=== PATIENT | male | born 1960 | race Caucasian/White ===

== ENCOUNTER → 2021-01-13 08:13 | Outpatient (CLI) | payer OTHER, SELFPAY ==
[2021-01-13 08:52] LABS: Add Manual Diff / Slide Review NO; Basophils Absolute Auto 100 /uL (0-100); Basophils Percent Auto 0.9 % (0-2); Eosinophils Absolute Auto 200 /uL (0-450); Eosinophils Percent Auto 2.3 % (2-4); Hematocrit 42.7 % (41-53); Hemoglobin 14.6 g/dL (13.5-17.5); Lymphocytes Absolute Auto 2000 /uL (1100-4500); Lymphocytes Percent Auto 27.2 % (25-40); Mean Corpuscular HGB Conc 34.2 % (30-36); Mean Corpuscular Hemoglobin 30.7 PG (26-34); Mean Corpuscular Volume 89.7 fL (80-100); Monocytes Absolute Auto 500 /uL (0-900); Monocytes Percent Auto 6.8 % (3-14); Neutrophils Absolute Auto 4600 /uL (1500-7000); Neutrophils Percent Auto 62.8 % (50-75); Platelet Count 191 X10^3/uL (150-400); Red Blood Cell Count 4.76 X10^6/uL (4.5-5.9); Red Cell Distribution Width 14.4 % (11.6-14.8); White Blood Cell Count 7.3 X10^3/uL (4.5-11.0)
[2021-01-13 08:59] LABS: Alanine Aminotransferase 18 IU/L (<50); Albumin 4.7 g/dL (3.5-5.0); Albumin Globulin Ratio 1.3 (1.0-2.8); Alkaline Phosphatase 67 U/L (38-126); Aspartate Aminotransferase 35 IU/L (17-59); BUN Creatinine Ratio 18.6 (6-22); Bilirubin Total 0.5 mg/dL (0.2-1.3); Blood Urea Nitrogen 16 mg/dL (9-20); Calcium 9.4 mg/dL (8.4-10.2); Carbon Dioxide 29 mmol/L (22-32); Chloride 105 mmol/L (98-107); Cholesterol 205 mg/dL (140-199); Estimated Glomerular Filt Rate > 60.0 mL/min (>60); Globulin 3.6 g/dL (1.7-4.1); Glucose 102 mg/dL (70-100); HDL Cholesterol 83 mg/dL (40-60); HEMOLYSIS < 15 (0-50); LDL Cholesterol Calculated 91 mg/dL (<100); Potassium 3.7 mmol/L (3.4-5.1); Sodium 143 mmol/L (137-145); Total Protein 8.3 g/dL (6.3-8.2); Triglycerides 155 mg/dL (35-150); Uric Acid 6.5 mg/dL (3.5-8.5)
[2021-01-13 09:27] LABS: Prostate Specific Antigen 0.234 ng/mL (0.10-4.00)
== END ==
PROVIDERS: PCP Family Medicine; Referring Provider Family Medicine; Visit Provider Family Medicine
DX: E78.5 Hyperlipidemia, unspecified (principal); I10 Essential (primary) hypertension; M10.9 Gout, unspecified
CPT/HCPCS: 36415; 80053; 80061; 84153; 84550; 85025

== ENCOUNTER → 2022-05-07 09:37 | Outpatient (CLI) | payer OTHER, SELFPAY ==
[2022-05-07 11:20] LABS: Add Manual Diff / Slide Review NO; Basophils Absolute Auto 100 /uL (0-100); Basophils Percent Auto 1.1 % (0-2); Eosinophils Absolute Auto 100 /uL (0-450); Hematocrit 43.6 % (41-53); Hemoglobin 14.9 g/dL (13.5-17.5); Lymphocytes Absolute Auto 1700 /uL (1100-4500); Lymphocytes Percent Auto 31.2 % (25-40); Mean Corpuscular HGB Conc 34.2 % (30-36); Mean Corpuscular Hemoglobin 30.6 PG (26-34); Mean Corpuscular Volume 89.5 fL (80-100); Monocytes Absolute Auto 500 /uL (0-900); Monocytes Percent Auto 8.2 % (3-14); Neutrophils Absolute Auto 3200 /uL (1500-7000); Neutrophils Percent Auto 57.5 % (50-75); Platelet Count 178 X10^3/uL (150-400); Red Blood Cell Count 4.88 X10^6/uL (4.5-5.9); Red Cell Distribution Width 13.5 % (11.6-14.8); White Blood Cell Count 5.6 X10^3/uL (4.5-11.0)
[2022-05-07 11:35] LABS: Alanine Aminotransferase 23 IU/L (<50); Albumin 4.6 g/dL (3.5-5.0); Albumin Globulin Ratio 1.4 (1.0-2.8); Alkaline Phosphatase 65 U/L (38-126); Aspartate Aminotransferase 35 IU/L (17-59); BUN Creatinine Ratio 17.8 (6-22); Bilirubin Total 0.9 mg/dL (0.2-1.3); Blood Urea Nitrogen 16 mg/dL (9-20); Calcium 9.3 mg/dL (8.4-10.2); Carbon Dioxide 30 mmol/L (22-32); Chloride 100 mmol/L (98-107); Cholesterol 230 mg/dL (140-199); Estimated Glomerular Filt Rate > 60 mL/min (>60); Globulin 3.4 g/dL (1.7-4.1); Glucose 93 mg/dL (80-110); HDL Cholesterol 75 mg/dL (40-60); HEMOLYSIS < 15 (0-50); LDL Cholesterol Calculated 131 mg/dL (<100); Potassium 4.3 mmol/L (3.4-5.1); Sodium 139 mmol/L (137-145); Triglycerides 121 mg/dL (35-150)
[2022-05-07 12:01] LABS: Prostate Specific Antigen 0.181 ng/mL (0.10-4.00)
== END ==
PROVIDERS: PCP Family Medicine; Referring Provider Family Medicine; Visit Provider Family Medicine
DX: E78.00 Pure hypercholesterolemia, unspecified (principal); I10 Essential (primary) hypertension
CPT/HCPCS: 36415; 80053; 80061; 84153; 85025

== ENCOUNTER → 2022-06-14 15:50 | Outpatient (CLI) | payer OTHER, SELFPAY ==
[2022-06-14 16:23] LABS: Appearance Urine UA CLEAR; Bilirubin Urine UA NEGATIVE (NEGATIVE); Color Urine UA YELLOW; Glucose Urine UA NEGATIVE (Negative); Ketones Urine UA NEGATIVE (NEGATIVE); Leukocyte Esterase Urine UA NEGATIVE (NEGATIVE); Nitrite Urine UA NEGATIVE (Negative); Occult Blood Urine UA NEGATIVE (Negative); Protein Urine UA NEGATIVE (Negative); pH Urine UA 6.5 (4.5-8.0)
[2022-06-14 16:39] LABS: Bacteria Urine None Seen; Culture Indicated Urine Cult Not Indicated; RBC Urine None Seen (0-5/HPF); Squamous Epithelial Cell Urine None Seen (0-5/HPF); WBC Urine None Seen (0-5/HPF)
== END ==
PROVIDERS: PCP Family Medicine; Referring Provider Family Medicine; Visit Provider Family Medicine
DX: N45.1 Epididymitis (principal)
CPT/HCPCS: 81001

== ENCOUNTER → 2022-08-13 09:40 | Day surgery (SDC) | payer OTHER, SELFPAY ==
--- NOTE | 2022-08-13 | PATH_ITS ---
[facility] Accession Number: [id number] No. of containers..01 Tissue . 01 Material submitted: . cecum - CECAL POLYP BIOPSY . 01 Diagnosis: Cecum, Polyp, Biopsy: Tubular adenoma. [facility] 08/17/2022 1707 Local . 01 Electronically signed: . Linda Moeller MD, Pathologist NPI- [id number] . 01 Gross description: . CECAL POLYP BIOPSY: Received in formalin is 1 fragment(s) of valentine, soft tissue measuring 0.4 x 0.3 x 0.2 cm submitted entirely in 1 cassette(s) /[facility] 08/16/2022 1151 Local . 01 Pathologist provided ICD-10: D12.0 . 01 CPT . 690817 Specimen Comment: A courtesy copy of this report has been sent to [facility] Pathology Performed at: 01 [facility] [address] [place] [address], [place], [place] [id number] MD Kervin Smiley MD Phone: [phone]
[2022-08-13 10:00] VITALS: BP 148/89; PULSE 61; RESP 18; TEMP 36.3; O2SAT 98; BMI 28.8
[2022-08-13] MEDS: LACTATED RINGERS 1,000 ML 42 ML IV (10:20)
--- NOTE | 2022-08-13 10:47 | PM.HP.1 ---
History of Present Illness History of Present Illness Date Patient Seen: 08/13/22 Time Patient Seen: 10:47 Chief complaint: [facility] [place] Narrative: Mr. Tran presents today for screening colonoscopy. He has no family history of colon cancer. He believes that his last colonoscopy was done 10 years ago it was on ?base? he thinks that he did have some polyps. He has no concerning symptoms and no further questions. The prep went well. [facility] Medical History (Updated 08/13/22 @ 10:48 by Jessica Bush MD) CVA (cerebral vascular accident) Epididymitis Gout Hyperlipidemia Hypertension Well adult on routine health check Surgical History (Updated 05/07/22 @ 09:21 by Imer Huerta DO) H/O hernia repair History of vasectomy Family History (Updated 05/07/22 @ 18:27 by Imer Huerta DO) Father Hypertension Congestive heart failure Brother Hypertension Social History household members: spouse Smoking Status: Never smoker second hand exposure: No alcohol intake: current substance use type: does not use Meds Home Medications and Allergies Home Medications Medication Instructions Recorded Confirmed Type colchicine 0.6 mg capsule 0.6 mg PO DAILY #20 caps 11/25/20 08/13/22 Rx donepezil 10 mg tablet 10 mg PO 05/07/22 06/14/22 History indomethacin 25 mg capsule 25 mg PO TID PRN diarrhea 05/07/22 08/13/22 History loratadine 10 mg tablet 10 mg PO DAILY PRN diarrhea 05/07/22 08/13/22 History doxycycline hyclate 100 mg capsule 100 mg PO BID #14 caps 06/14/22 08/13/22 Rx ibuprofen 800 mg tablet 800 mg PO TID PRN pain #30 tabs 06/14/22 08/13/22 Rx felodipine 10 mg tablet,extended 10 mg PO DAILY #90 tabs 06/18/22 08/13/22 Rx release 24 hr levothyroxine 100 mcg tablet 100 mcg PO DAILY #90 tabs 06/18/22 08/13/22 Rx (Synthroid) rosuvastatin 10 mg tablet 10 mg PO DAILY #90 tabs 06/18/22 Rx sodium,potassium,mag sulfates 17.5 See Rx Instructions PO .COMPLEX 08/10/22 Rx gram-3.13 gram-1.6 gram oral soln #354 mL (Suprep Bowel Prep Kit) Allergies Allergy/AdvReac Type Severity Reaction Status Date / Time No Known Drug Allergies Allergy Verified 08/13/22 09:55 Exam Vital Signs (past 8 hours): - 08/13/22 10:00 Temperature 97.4 F L Pulse Rate 61 Respiratory Rate 18 Blood Pressure 148/89 H Pulse Oximetry 98 Oxygen Delivery Method Room Air Oxygen Delivery Method Room Air Const General: cooperative, healthy appearing and comfortable HENMT Head: normal to inspection Eyes General: appearance normal, both eyes and all related structures Resp Effort & Inspection: normal respiratory effort and able to speak in complete sentences GI Palpation: soft and No tender Assessment & Plan Assessment and plan (1) Colon cancer screening: Status: Acute Assessment & Plan narrative: Presents today for screening colonoscopy I discussed the risks benefits and alternatives including but not limited to perforation of the colon and an incomplete exam he fully understands these risks and would like to proceed.
--- NOTE | 2022-08-13 11:43 | P.OP.COLON_ITS ---
Operative Date/Time/Diagnoses Date of procedure: 08/13/22 Time of procedure: 11:43 Pre-op diagnosis: Colon cancer screening history of polyps Procedure & Clinicians Study performed: Colonoscopy and biopsy Same procedure as scheduled: Yes Indications: Colon cancer screening, average risk Surgeon: Jessica Bush Procedure Notes Procedure in detail: Patient was taken to the endoscopy suite and placed in a left lateral decubitus position. Time-out was performed. Conscious sedation with the help of anesthesiologist was induced and maintained. A digital rectal exam was performed there were no masses or strictures. The colonoscope was introduced into the anal canal and advanced through to the cecum. Photograph of the appendiceal orifice was obtained. The prep was good [place] bowel prep score of 2. There was a small cecal polyp that was removed with the forceps. The scope was withdrawn slowly. There were some scattered diverticula throughout the sigmoid colon. The scope then retroflexed and the hemorrhoidal piles appeared normal. A photograph was obtained. Patient tolerated the procedure well and went in good condition to the postoperative care unit. Findings: divertiulosis and polyp(s) Specimen(s): other (1. Small cecal polyp.) Complications: none Post-procedure Plan for aftercare: Follow up in 7-10 years as long as there is no family history of colon cancer that develops and no concerning symptoms that develop in the interim.
[2022-08-13 11:47] VITALS: BP 108/67; PULSE 65; RESP 18; TEMP 36.6; O2SAT 94
[2022-08-13 11:52] VITALS: BP 109/71; PULSE 55; RESP 12; O2SAT 96
[2022-08-13 11:57] VITALS: BP 119/80; PULSE 68; RESP 16; O2SAT 97
[2022-08-13 12:03] VITALS: BP 130/80; PULSE 55; RESP 16; O2SAT 98
[2022-08-13 12:06] VITALS: BP 129/81; PULSE 54; RESP 16; TEMP 36.4; O2SAT 99
== END | disposition home or self-care (01) ==
PROVIDERS: PCP Family Medicine; Referring Provider Surgery; Visit Provider Surgery
PROC: 0DJD8ZZ Inspection of Lower Intestinal Tract, Via Natural or Artificial Opening Endoscopic (ICD-10-PCS; CPT 45378; principal; 2022-08-13 10:45)
DX: Z12.11 Encounter for screening for malignant neoplasm of colon (principal); Z86.010 Personal history of colon polyps; K57.30 Diverticulosis of large intestine without perforation or abscess without bleeding; D12.0 Benign neoplasm of cecum
CPT/HCPCS: 45380; J2704

== ENCOUNTER 2022-08-17 19:19 | Emergency (ER) | payer OTHER, SELFPAY ==
[2022-08-17] VITALS (13 sets, daily range): BP systolic 152–197; BP diastolic 76–86; PULSE 42–74; RESP 16; TEMP 36.4; O2SAT 95–98; BMI 28.8
[2022-08-17 20:49] LABS: Add Manual Diff / Slide Review NO; Basophils Absolute Auto 100 /uL (0-100); Basophils Percent Auto 1.3 % (0-2); Eosinophils Absolute Auto 200 /uL (0-450); Eosinophils Percent Auto 2.3 % (2-4); Hematocrit 39.6 % (41-53); Hemoglobin 13.7 g/dL (13.5-17.5); Lymphocytes Absolute Auto 2400 /uL (1100-4500); Lymphocytes Percent Auto 32.5 % (25-40); Mean Corpuscular HGB Conc 34.5 % (30-36); Mean Corpuscular Hemoglobin 30.9 PG (26-34); Mean Corpuscular Volume 89.5 fL (80-100); Monocytes Absolute Auto 600 /uL (0-900); Monocytes Percent Auto 8.6 % (3-14); Neutrophils Absolute Auto 4100 /uL (1500-7000); Neutrophils Percent Auto 55.3 % (50-75); Platelet Count 175 X10^3/uL (150-400); Red Blood Cell Count 4.42 X10^6/uL (4.5-5.9); Red Cell Distribution Width 13.6 % (11.6-14.8); White Blood Cell Count 7.4 X10^3/uL (4.5-11.0)
--- NOTE | 2022-08-17 20:49 | ED.GENADULT ---
HPI - General Adult General Chief complaint: Abdominal Pain Stated complaint: Swollen R rib cage; increasing pain Time Seen by Provider: 08/17/22 20:13 Source: patient Mode of arrival: Family Vehicle History of Present Illness HPI narrative: 62-year-old male who is here for evaluation of right upper quadrant abdominal pain he states that it did start earlier today approximately 1 hour after eating lunch. Has improved somewhat but is not completely gone. No vomiting. No diarrhea. No urinary symptoms. Has not tried anything for the symptoms prior to arrival. Did have a colonoscopy in the end of last week with polyp removals. Related Data Home Medications Medication Instructions Recorded Confirmed donepezil 10 mg tablet 10 mg PO 05/07/22 06/14/22 indomethacin 25 mg capsule 25 mg PO TID PRN diarrhea 05/07/22 08/13/22 loratadine 10 mg tablet 10 mg PO DAILY PRN diarrhea 05/07/22 08/13/22 Previous Rx's Medication Instructions Recorded colchicine 0.6 mg capsule 0.6 mg PO DAILY #20 caps 11/25/20 doxycycline hyclate 100 mg capsule 100 mg PO BID #14 caps 06/14/22 ibuprofen 800 mg tablet 800 mg PO TID PRN pain #30 tabs 06/14/22 felodipine 10 mg tablet,extended 10 mg PO DAILY #90 tabs 06/18/22 release 24 hr levothyroxine 100 mcg tablet 100 mcg PO DAILY #90 tabs 06/18/22 (Synthroid) rosuvastatin 10 mg tablet 10 mg PO DAILY #90 tabs 06/18/22 psyllium husk (with sugar) 3.4 1 tbsp PO BID #822 grams 08/13/22 gram/7 gram oral powder (Fiber (psyllium husk-sugar)) Allergies Allergy/AdvReac Type Severity Reaction Status Date / Time No Known Drug Allergies Allergy Verified 08/17/22 19:56 Review of Systems Review of Systems ROS Unobtainable: All systems reviewed & are unremarkable except as noted in HPI and below Patient History Medical History CVA (cerebral vascular accident) Epididymitis Gout Hyperlipidemia Hypertension Well adult on routine health check Surgical History (Updated 05/07/22 @ 09:21 by Imer Huerta DO) H/O hernia repair History of vasectomy Family History (Updated 05/07/22 @ 18:27 by Imer Huerta DO) Father Hypertension Congestive heart failure Brother Hypertension Social History household members: spouse Smoking Status: Never smoker second hand exposure: No alcohol intake: current substance use type: does not use Smoking Status: Never smoker alcohol intake frequency: 0-2 drinks per day Substance Use Type: does not use Exam Initial Vital Signs Initial Vital Signs: Vital Signs Temperature 97.6 F 08/17/22 19:50 Pulse Rate 48 L 08/17/22 19:50 Respiratory Rate 16 08/17/22 19:50 Blood Pressure 197/86 H 08/17/22 19:50 Pulse Oximetry 98 08/17/22 19:50 Oxygen Delivery Method Room Air 08/17/22 19:50 Resp Effort & Inspection: normal respiratory effort Auscultation: clear to auscultation bilaterally Cardio Rate: regular rate Rhythm: regular rhythm GI Inspection: normal to inspection and non-distended Palpation: soft, No firm and No tender Other: No Lanier's sign Back/Spine/Pelvis Back: No CVA tenderness Neuro General: patient alert, patient awake and moves all extremities Extrem General: normal to inspection and capillary refill normal Course Orders Ordered: ED Orders 08/17/22 19:58 EKG-12 Lead Stat 08/17/22 20:41 Complete Blood Count AUTO DIFF Stat Comprehensive Metabolic Panel Stat Lipase Stat 08/17/22 20:50 US abdomen limited Stat Discontinued Medications Ondansetron HCl (Ondansetron 4 Mg Odt) 4 mg PO NOW PRN PRN Reason: Nausea And Vomiting Ondansetron HCl (Ondansetron 4 Mg/2 Ml Inj) 4 mg IV NOW PRN PRN Reason: Nausea And Vomiting Vital Signs Vital signs: Vital Signs - 8 hr 08/17/22 19:50 08/17/22 20:42 08/17/22 20:43 Temperature 97.6 F Pulse Rate 48 L 50 L 42 L Respiratory Rate 16 Blood Pressure 197/86 H Pulse Oximetry 98 97 98 Oxygen Delivery Method Room Air 08/17/22 20:43 08/17/22 21:00 08/17/22 21:01 Temperature Pulse Rate 44 L 44 L Respiratory Rate Blood Pressure 185/84 H Pulse Oximetry 97 97 Oxygen Delivery Method 08/17/22 21:01 08/17/22 21:30 08/17/22 21:31 Temperature Pulse Rate 50 L 45 L Respiratory Rate Blood Pressure 179/84 H Pulse Oximetry 98 97 Oxygen Delivery Method 08/17/22 21:31 08/17/22 22:00 08/17/22 22:00 Temperature Pulse Rate 47 L Respiratory Rate Blood Pressure 152/76 H 167/83 H Pulse Oximetry 97 Oxygen Delivery Method Room Air 08/17/22 22:30 08/17/22 22:31 08/17/22 22:31 Temperature Pulse Rate 46 L 44 L Respiratory Rate Blood Pressure 170/80 H Pulse Oximetry 96 96 Oxygen Delivery Method 08/17/22 23:00 08/17/22 23:01 08/17/22 23:01 Temperature Pulse Rate 46 L 46 L Respiratory Rate Blood Pressure 155/83 H Pulse Oximetry 95 96 Oxygen Delivery Method Room Air Room Air 08/17/22 23:26 Temperature 97.6 F Pulse Rate 74 Respiratory Rate 16 Blood Pressure 155/84 H Pulse Oximetry 98 Oxygen Delivery Method Room Air Medical Decision Making Lab Data Lab results reviewed: Yes I reviewed the patient's lab results. 08/17/22 20:41 08/17/22 20:41 Labs: Lab Results 08/17/22 08/17/22 Range/Units 20:41 20:41 WBC 7.4 (4.5-11.0) X10^3/uL RBC 4.42 L (4.5-5.9) X10^6/uL Hgb 13.7 (13.5-17.5) g/dL Hct 39.6 L (41-53) % MCV 89.5 (80-100) fL MCH 30.9 (26-34) PG MCHC 34.5 (30-36) % RDW 13.6 (11.6-14.8) % Plt Count 175 (150-400) X10^3/uL Neut % (Auto) 55.3 (50-75) % Lymph % (Auto) 32.5 (25-40) % [place] % (Auto) 8.6 (3-14) % Eos % (Auto) 2.3 (2-4) % Baso % (Auto) 1.3 (0-2) % Neut # (Auto) 4100 (4774-6145) /uL Lymph # (Auto) 2400 (6765-7644) /uL [place] # (Auto) 600 (0-900) /uL Eos # (Auto) 200 (0-450) /uL Baso # (Auto) 100 (0-100) /uL Sodium 141 (137-145) mmol/L Potassium 3.3 L (3.4-5.1) mmol/L Chloride 105 (98-107) mmol/L Carbon Dioxide 28 (22-32) mmol/L BUN 14 (9-20) mg/dL Creatinine 0.96 (0.66-1.25) mg/dL Estimated GFR > 60 (>60) mL/min BUN/Creatinine Ratio 14.6 (6-22) Glucose 93 (80-110) mg/dL Calcium 9.0 (8.4-10.2) mg/dL Total Bilirubin 0.7 (0.2-1.3) mg/dL AST 28 (17-59) IU/L ALT 20 (<50) IU/L Alkaline Phosphatase 58 (38-126) U/L Total Protein 7.4 (6.3-8.2) g/dL Albumin 4.3 (3.5-5.0) g/dL Globulin 3.1 (1.7-4.1) g/dL Albumin/Globulin Ratio 1.4 (1.0-2.8) Lipase 59 (23-300) U/L Imaging Data US - abdomen: Radiologist's Impression: PROCEDURE: US ABDOMEN LIMITED ? INDICATIONS:? RUQ PAIN ? TECHNIQUE:? Real-time focused scanning was performed of the abdomen, with image documentation.? ? COMPARISON:? None. ? FINDINGS:? ? The liver demonstrates increased no focal mass lesions.? ? There are 2-3 mobile gallstones without gallbladder wall thickening, pericholecystic fluid, or reported sonographic Lanier's sign. ? No intra or extrahepatic biliary ductal dilatation. ? Pancreas was not well seen due to bowel gas. ? ? IMPRESSION:? ? 1. Cholelithiasis without evidence of cholecystitis. MDM Narrative Medical decision making narrative: Patient has a benign exam. Right upper quadrant ultrasound does show cholelithiasis without acute cholecystitis. His labs are unremarkable. I do feel this is most likely the cause of his symptoms today however no indication for admission to the hospital or acute surgical consultation. I did discuss this with him. Discussed the importance of follow-up with general surgery and he was given information for this. We discussed potential dietary changes. He was given return precautions. He expressed understanding and agreement. Discharge Plan Departure Patient Disposition: Home Clinical Impression: Cholelithiasis Instructions: DI for Gallstones Activity Restrictions/Additional Instructions: Recommend that you continue to take all of your medications as directed. I also recommend that you contact the general surgery department at the number provided below for a routine follow-up as an outpatient. Return to the emergency department for new or worsening symptoms. Prescriptions: No Action rosuvastatin 10 mg tablet 10 mg PO DAILY Qty: 90 3RF levothyroxine [Synthroid] 100 mcg tablet 100 mcg PO DAILY Qty: 90 3RF felodipine 10 mg tablet extended release 24 hr 10 mg PO DAILY Qty: 90 3RF donepezil 10 mg tablet 10 mg PO doxycycline hyclate 100 mg capsule 100 mg PO BID Qty: 14 0RF ibuprofen 800 mg tablet 800 mg PO TID PRN (Reason: pain) Qty: 30 0RF colchicine 0.6 mg capsule 0.6 mg PO DAILY Qty: 20 1RF Rx Instructions: One p.o. Q hour max 6 in 1 day as needed gout attack loratadine 10 mg tablet 10 mg PO DAILY PRN (Reason: diarrhea) indomethacin 25 mg capsule 25 mg PO TID PRN (Reason: diarrhea) Fiber (psyllium husk-sugar) 3.4 gram/7 gram powder 1 tbsp PO BID Qty: 822 0RF Referrals: Jessica Bush MD [Physician] - Imer Huerta DO [Primary Care Provider] - Stand Alone Forms: Patient Portal/API
--- NOTE | 2022-08-17 20:50 | DI.US.S_ITS ---
PROCEDURE: US ABDOMEN LIMITED INDICATIONS: RUQ PAIN TECHNIQUE: Real-time focused scanning was performed of the abdomen, with image documentation. COMPARISON: None. FINDINGS: The liver demonstrates increased no focal mass lesions. There are 2-3 mobile gallstones without gallbladder wall thickening, pericholecystic fluid, or reported sonographic Lanier's sign. No intra or extrahepatic biliary ductal dilatation. Pancreas was not well seen due to bowel gas. IMPRESSION: 1. Cholelithiasis without evidence of cholecystitis. Dictated by: Kervin Marie M.D. on 08/17/2022 at 22:59 Approved by: Kervin Marie M.D. on 08/17/2022 at 23:00
[2022-08-17 21:14] LABS: Alanine Aminotransferase 20 IU/L (<50); Albumin 4.3 g/dL (3.5-5.0); Albumin Globulin Ratio 1.4 (1.0-2.8); Alkaline Phosphatase 58 U/L (38-126); Aspartate Aminotransferase 28 IU/L (17-59); BUN Creatinine Ratio 14.6 (6-22); Bilirubin Total 0.7 mg/dL (0.2-1.3); Blood Urea Nitrogen 14 mg/dL (9-20); Carbon Dioxide 28 mmol/L (22-32); Chloride 105 mmol/L (98-107); Estimated Glomerular Filt Rate > 60 mL/min (>60); Globulin 3.1 g/dL (1.7-4.1); Glucose 93 mg/dL (80-110); HEMOLYSIS < 15 (0-50); Lipase 59 U/L (23-300); Potassium 3.3 mmol/L (3.4-5.1); Sodium 141 mmol/L (137-145); Total Protein 7.4 g/dL (6.3-8.2)
== END 2022-08-17 23:28 | disposition home or self-care (01) ==
PROVIDERS: Emergency Provider Emergency Medicine; PCP Family Medicine
DX: K80.20 Calculus of gallbladder without cholecystitis without obstruction (principal); R10.11 Right upper quadrant pain
CPT/HCPCS: 36415; 76705; 80053; 83690; 85025; 93005; 93010; 99283; 99284

== ENCOUNTER 2022-08-20 06:36 | Inpatient (IN) | payer OTHER, SELFPAY ==
[2022-08-20] VITALS (22 sets, daily range): BP systolic 131–157; BP diastolic 70–91; PULSE 42–81; RESP 11–20; TEMP 36.1–36.7; O2SAT 86–100; BMI 28.5
--- NOTE | 2022-08-20 | PATH_ITS ---
[facility] Accession Number: [id number] No. of containers..01 Tissue . 01 Material submitted: . gallbladder - GALLBALDDER . 01 Diagnosis: Gallbladder, Cholecystectomy: Chronic cholecystitis and cholelithiasis. [facility] 08/30/2022 1247 Local . 01 Electronically signed: . Gloria Washington MD, Pathologist NPI- [id number] . 01 Gross description: . The specimen is received in formalin labeled with the patient's name, , and gallbladder, and consists of an intact gallbladder measuring 6.3 x 2.6 x 2.2 cm. The external surface is unremarkable. The cystic duct is received closed with a clamp, is inked blue, and no pericystic lymph node is identified. The lumen contains a small amount of green viscous bile and multiple green, roughened calculi measuring up to 0.6 cm in greatest dimension, grossly obstructing the cystic duct. A firm, nodule is located in the fundus. The serosa is inked black. Sectioning reveals a calculus embedded into the gallbladder wall. The mucosa is valentine and trabecular with no discoloration, polyps, or lesions identified. The samson average 0.3 cm thick. Continuity Coordinator sections to include the cystic duct margin and full-thickness sections are submitted in cassette A1. ([id number]) /[facility] 08/25/2022 0335 Local . 01 Pathologist provided ICD-10: K80.10 . 01 CPT . 157768 Specimen Comment: A courtesy copy of this report has been sent to [phone] Performed at: 01 [facility] [address] [place] [address] [address], [place], [place] [id number] MD Kervin Smiley MD Phone: [phone]
--- NOTE | 2022-08-20 06:44 | ED.GENADULT ---
HPI - General Adult <Florentino Aguirre DO - Last Filed: 08/20/22 18:03> General Chief complaint: Nausea/Vomiting/Diarrhea Stated complaint: throwing up, gall stones Time Seen by Provider: 08/20/22 06:38 Source: patient Mode of arrival: Ambulatory Limitations: no limitations History of Present Illness HPI narrative: Patient is a 62-year-old male who I evaluated here in the emergency department a couple days ago for right upper quadrant abdominal pain. Was diagnosed with cholelithiasis without signs of acute cholecystitis. Was discharged home. He had follow-up today with General surgery however overnight at approximately 0330 in the morning at a sudden onset of right upper quadrant abdominal pain. No fevers. No diarrhea. No urinary symptoms. Has not tried anything for symptoms prior to arrival. He has been vomiting multiple times. Related Data Home Medications Medication Instructions Recorded Confirmed indomethacin 25 mg capsule 25 mg PO TID PRN diarrhea 05/07/22 08/20/22 loratadine 10 mg tablet 10 mg PO DAILY PRN diarrhea 05/07/22 08/20/22 Previous Rx's Medication Instructions Recorded ibuprofen 800 mg tablet 800 mg PO TID PRN pain #30 tabs 06/14/22 felodipine 10 mg tablet,extended 10 mg PO DAILY #90 tabs 06/18/22 release 24 hr levothyroxine 100 mcg tablet 100 mcg PO DAILY #90 tabs 06/18/22 (Synthroid) rosuvastatin 10 mg tablet 10 mg PO DAILY #90 tabs 06/18/22 Allergies Allergy/AdvReac Type Severity Reaction Status Date / Time No Known Drug Allergies Allergy Verified 08/17/22 19:56 Review of Systems <DO Dexter Triplett Last Filed: 08/20/22 18:03> Constitutional Constitutional: Reports system reviewed and no additional complaints, except as documented Gastrointestinal Gastrointestinal: Reports system reviewed and no additional complaints, except as documented Genitourinary Genitourinary: Reports system reviewed and no additional complaints, except as documented Integumentary/Breasts Skin/Breast: Reports system reviewed and no additional complaints, except as documented Patient History <Florentino Aguirre DO - Last Filed: 08/20/22 18:03> Medical History CVA (cerebral vascular accident) Epididymitis Gout Hyperlipidemia Hypertension Well adult on routine health check Surgical History H/O hernia repair History of vasectomy Family History Father Hypertension Congestive heart failure Brother Hypertension Social History household members: spouse Smoking Status: Never smoker second hand exposure: No alcohol intake: current substance use type: does not use Smoking Status: Never smoker alcohol intake frequency: 0-2 drinks per day Substance Use Type: does not use Exam <Florentino Aguirre DO - Last Filed: 08/20/22 18:03> Initial Vital Signs Initial Vital Signs: Vital Signs Pulse Rate 59 L 08/20/22 06:43 Pulse Oximetry 100 08/20/22 06:43 Const General: cooperative and No ill appearing Resp Effort & Inspection: normal respiratory effort Auscultation: clear to auscultation bilaterally Cardio Rate: regular rate Rhythm: regular rhythm GI Inspection: normal to inspection and non-distended Palpation: soft and tender (Right upper quadrant tenderness) Other: Positive Lanier's sign Skin General: no rashes or lesions noted Neuro General: patient alert, patient awake and moves all extremities Extrem General: normal to inspection and capillary refill normal <Brooks Neil DO - Last Filed: 08/20/22 08:33> Initial Vital Signs Initial Vital Signs: Vital Signs Pulse Rate 59 L 08/20/22 06:43 Pulse Oximetry 100 08/20/22 06:43 Course <DO Dexter Triplett Last Filed: 08/20/22 18:03> Orders Ordered: Bupivacaine HCl (Bupivacaine 0.25% (Pf) Vial) 30 ml INJ NOW ONE Stop: 08/20/22 17:59 Last Admin: 08/20/22 17:58 Dose: 30 ml Documented By: NORMA Sodium Chloride (Normal Saline 0.9%) 1,000 mls @ 125 mls/hr IV CONT HILL Last Infusion: 08/20/22 08:59 Dose: 0 mls/hr Documented By: NORMA(2) Admin: 08/20/22 07:12 Dose: 125 mls/hr Documented By: GEOVANNI Lactated Ringer's (Lactated Ringers) 1,000 mls @ 42 mls/hr IV CONT HILL Last Admin: 08/20/22 17:04 Dose: 42 mls/hr Documented By: WALTER Cefazolin Sodium/Dextrose (Ancef) 100 mls @ 200 mls/hr IV NOW ONE Stop: 08/20/22 18:27 Last Admin: 08/20/22 17:35 Dose: 200 mls/hr Documented By: AB Discontinued Medications Hydromorphone HCl (Hydromorphone 1 Mg Inj) 1 mg IV NOW ONE Stop: 08/20/22 06:45 Last Admin: 08/20/22 07:10 Dose: 1 mg Documented By: GEOVANNI Ondansetron HCl (Ondansetron 4 Mg/2 Ml Inj) 4 mg IV NOW ONE Stop: 08/20/22 06:45 Last Admin: 08/20/22 07:09 Dose: 4 mg Documented By: GEOVANNI Vital Signs Vital signs: Vital Signs - 8 hr 08/20/22 06:58 Temperature 97.8 F Pulse Rate 64 Respiratory Rate 18 Blood Pressure 157/86 H Pulse Oximetry 100 Oxygen Delivery Method Room Air <Brooks Neil DO - Last Filed: 08/20/22 08:33> Orders Ordered: Bupivacaine HCl (Bupivacaine 0.25% (Pf) Vial) 30 ml INJ NOW ONE Stop: 08/20/22 17:59 Last Admin: 08/20/22 17:58 Dose: 30 ml Documented By: NORMA Sodium Chloride (Normal Saline 0.9%) 1,000 mls @ 125 mls/hr IV CONT HILL Last Infusion: 08/20/22 08:59 Dose: 0 mls/hr Documented By: NORMA(2) Admin: 08/20/22 07:12 Dose: 125 mls/hr Documented By: GEOVANNI Lactated Ringer's (Lactated Ringers) 1,000 mls @ 42 mls/hr IV CONT HILL Last Admin: 08/20/22 17:04 Dose: 42 mls/hr Documented By: WALTER Cefazolin Sodium/Dextrose (Ancef) 100 mls @ 200 mls/hr IV NOW ONE Stop: 08/20/22 18:27 Last Admin: 08/20/22 17:35 Dose: 200 mls/hr Documented By: AB Discontinued Medications Hydromorphone HCl (Hydromorphone 1 Mg Inj) 1 mg IV NOW ONE Stop: 08/20/22 06:45 Last Admin: 08/20/22 07:10 Dose: 1 mg Documented By: GEOVANNI Ondansetron HCl (Ondansetron 4 Mg/2 Ml Inj) 4 mg IV NOW ONE Stop: 08/20/22 06:45 Last Admin: 08/20/22 07:09 Dose: 4 mg Documented By: GEOVANNI Vital Signs Vital signs: Vital Signs - 8 hr 08/20/22 06:58 Temperature 97.8 F Pulse Rate 64 Respiratory Rate 18 Blood Pressure 157/86 H Pulse Oximetry 100 Oxygen Delivery Method Room Air Medical Decision Making <Florentino Aguirre DO - Last Filed: 08/20/22 18:03> Lab Data 08/20/22 07:00 08/20/22 07:00 Labs: Lab Results 08/20/22 08/20/22 08/20/22 Range/Units 07:00 07:00 07:00 WBC 13.1 H (4.5-11.0) X10^3/uL RBC 5.11 (4.5-5.9) X10^6/uL Hgb 15.6 (13.5-17.5) g/dL Hct 44.9 (41-53) % MCV 87.9 (80-100) fL MCH 30.5 (26-34) PG MCHC 34.7 (30-36) % RDW 13.7 (11.6-14.8) % Plt Count 190 (150-400) X10^3/uL Neut % (Auto) 82.5 H (50-75) % Lymph % (Auto) 12.3 L (25-40) % [place] % (Auto) 4.2 (3-14) % Eos % (Auto) 0.5 L (2-4) % Baso % (Auto) 0.5 (0-2) % Neut # (Auto) 01727 H (4047-2831) /uL Lymph # (Auto) 1600 (0653-6539) /uL [place] # (Auto) 500 (0-900) /uL Eos # (Auto) 100 (0-450) /uL Baso # (Auto) 100 (0-100) /uL Sodium 140 (137-145) mmol/L Potassium 3.2 L (3.4-5.1) mmol/L Chloride 101 (98-107) mmol/L Carbon Dioxide 27 (22-32) mmol/L BUN 14 (9-20) mg/dL Creatinine 1.00 (0.66-1.25) mg/dL Estimated GFR > 60 (>60) mL/min BUN/Creatinine Ratio 14.0 (6-22) Glucose 155 H (80-110) mg/dL Calcium 9.4 (8.4-10.2) mg/dL Total Bilirubin 0.7 (0.2-1.3) mg/dL AST 34 (17-59) IU/L ALT 27 (<50) IU/L Alkaline Phosphatase 83 (38-126) U/L Total Protein 8.9 H (6.3-8.2) g/dL Albumin 5.1 H (3.5-5.0) g/dL Globulin 3.8 (1.7-4.1) g/dL Albumin/Globulin Ratio 1.3 (1.0-2.8) Lipase 64 (23-300) U/L SARS-CoV-2 (PCR) Negative (Negative) MDM Narrative Medical decision making narrative: Patient has known cholelithiasis in his presentation today is very consistent with symptomatic cholelithiasis/acute cholecystitis. Is a positive sonographic Lanier's sign. Did discuss case with Dr. Morales who recommended we do get labs back however there is a consideration for taking him to the operating room. Care turned over to Dr. Quiñones to follow-up on labs and disposition. <Brooks Neil DO - Last Filed: 08/20/22 08:33> Lab Data Labs: Lab Results 08/20/22 08/20/22 08/20/22 Range/Units 07:00 07:00 07:00 WBC 13.1 H (4.5-11.0) X10^3/uL RBC 5.11 (4.5-5.9) X10^6/uL Hgb 15.6 (13.5-17.5) g/dL Hct 44.9 (41-53) % MCV 87.9 (80-100) fL MCH 30.5 (26-34) PG MCHC 34.7 (30-36) % RDW 13.7 (11.6-14.8) % Plt Count 190 (150-400) X10^3/uL Neut % (Auto) 82.5 H (50-75) % Lymph % (Auto) 12.3 L (25-40) % [place] % (Auto) 4.2 (3-14) % Eos % (Auto) 0.5 L (2-4) % Baso % (Auto) 0.5 (0-2) % Neut # (Auto) 83788 H (2814-1506) /uL Lymph # (Auto) 1600 (2691-0436) /uL [place] # (Auto) 500 (0-900) /uL Eos # (Auto) 100 (0-450) /uL Baso # (Auto) 100 (0-100) /uL Sodium 140 (137-145) mmol/L Potassium 3.2 L (3.4-5.1) mmol/L Chloride 101 (98-107) mmol/L Carbon Dioxide 27 (22-32) mmol/L BUN 14 (9-20) mg/dL Creatinine 1.00 (0.66-1.25) mg/dL Estimated GFR > 60 (>60) mL/min BUN/Creatinine Ratio 14.0 (6-22) Glucose 155 H (80-110) mg/dL Calcium 9.4 (8.4-10.2) mg/dL Total Bilirubin 0.7 (0.2-1.3) mg/dL AST 34 (17-59) IU/L ALT 27 (<50) IU/L Alkaline Phosphatase 83 (38-126) U/L Total Protein 8.9 H (6.3-8.2) g/dL Albumin 5.1 H (3.5-5.0) g/dL Globulin 3.8 (1.7-4.1) g/dL Albumin/Globulin Ratio 1.3 (1.0-2.8) Lipase 64 (23-300) U/L SARS-CoV-2 (PCR) Negative (Negative) MDM Narrative Medical decision making narrative: Patient has known cholelithiasis in his presentation today is very consistent with symptomatic cholelithiasis/acute cholecystitis. Is a positive sonographic Lanier's sign. Did discuss case with Dr. Morales who recommended we do get labs back however there is a consideration for taking him to the operating room. Care turned over to Dr. Neil to follow-up on labs and disposition [0700] (Rashaad) Patient received in sign out from [Timothy]. I have reviewed the clinical course and performed an independent history and physical exam. 0810 -labs have returned patient has white count and left shift. His pain is controlled currently but he is requiring 2 L by nasal cannula after administration of the meds. I have placed a call to Dr. Morales and after discussing the clinical course he requests the patient be admitted onto his service and will likely receive surgical intervention later today. Both the patient and his understand and agree with the diagnosis and plan. Discharge Plan Departure Patient Disposition: Admitted as Observation Clinical Impression: Disease of gallbladder Admit Date/Time: 08/20/22 08:24 Admit Provider: Christofer Morales
[2022-08-20] MEDS: ONDANSETRON 4 MG/2 ML INJ IV ×2 (07:09→19:13)
[2022-08-20] MEDS: HYDROMORPHONE 1 MG INJ IV (07:10)
[2022-08-20] MEDS: SODIUM CHLORIDE 0.9% 1,000 ML 125 ML IV (07:12)
[2022-08-20 07:32] LABS: COVID19 -Nasal RAPID Negative (Negative)
[2022-08-20 07:35] LABS: Alanine Aminotransferase 27 IU/L (<50); Albumin 5.1 g/dL (3.5-5.0); Albumin Globulin Ratio 1.3 (1.0-2.8); Alkaline Phosphatase 83 U/L (38-126); Aspartate Aminotransferase 34 IU/L (17-59); Bilirubin Total 0.7 mg/dL (0.2-1.3); Blood Urea Nitrogen 14 mg/dL (9-20); Calcium 9.4 mg/dL (8.4-10.2); Carbon Dioxide 27 mmol/L (22-32); Chloride 101 mmol/L (98-107); Estimated Glomerular Filt Rate > 60 mL/min (>60); Globulin 3.8 g/dL (1.7-4.1); Glucose 155 mg/dL (80-110); HEMOLYSIS 21 (0-50); Lipase 64 U/L (23-300); Potassium 3.2 mmol/L (3.4-5.1); Sodium 140 mmol/L (137-145); Total Protein 8.9 g/dL (6.3-8.2)
[2022-08-20 07:56] LABS: Add Manual Diff / Slide Review NO; Basophils Absolute Auto 100 /uL (0-100); Basophils Percent Auto 0.5 % (0-2); Eosinophils Absolute Auto 100 /uL (0-450); Eosinophils Percent Auto 0.5 % (2-4); Hematocrit 44.9 % (41-53); Hemoglobin 15.6 g/dL (13.5-17.5); Lymphocytes Absolute Auto 1600 /uL (1100-4500); Lymphocytes Percent Auto 12.3 % (25-40); Mean Corpuscular HGB Conc 34.7 % (30-36); Mean Corpuscular Hemoglobin 30.5 PG (26-34); Mean Corpuscular Volume 87.9 fL (80-100); Monocytes Absolute Auto 500 /uL (0-900); Monocytes Percent Auto 4.2 % (3-14); Neutrophils Absolute Auto 10800 /uL (1500-7000); Neutrophils Percent Auto 82.5 % (50-75); Platelet Count 190 X10^3/uL (150-400); Red Blood Cell Count 5.11 X10^6/uL (4.5-5.9); Red Cell Distribution Width 13.7 % (11.6-14.8); White Blood Cell Count 13.1 X10^3/uL (4.5-11.0)
--- NOTE | 2022-08-20 13:31 | PC.NURSE ---
Patient arrived to room 203 from ED this a.m. at approximately 1020 A&OX4. VSS, afebrile on RA. He reports abdominal pain is controlled and denies nausea/vomitting. IVF NS at 125 ml/hr. He is currently NPO while awaiting procedure this afternoon for cholecystecomy
[2022-08-20] MEDS: LACTATED RINGERS 1,000 ML 42 ML IV ×3 (17:04→19:36)
--- NOTE | 2022-08-20 17:08 | PM.HP.1 ---
History of Present Illness History of Present Illness Date Patient Seen: 08/20/22 Time Patient Seen: 17:08 Chief complaint: throwing up, gall stones Narrative: 62-year-old male admitted to the hospital with acute cholecystitis. He presented to the emergency department last night with complaint severe abdominal pain associated with nausea vomiting. He was seen in the emergency department several days ago, underwent abdominal ultrasound which demonstrated multiple gallstones no evidence of acute cholecystitis at that time, laboratory studies were normal including LFTs and he was discharged with plan to follow up in surgical clinic. Today on presentation white blood cell count is 13.1 imaging was not repeated as it had been done several days prior but he was exquisitely tender in the right upper quadrant at admission. [facility] Medical History CVA (cerebral vascular accident) Epididymitis Gout Hyperlipidemia Hypertension Well adult on routine health check Surgical History H/O hernia repair History of vasectomy Family History Father Hypertension Congestive heart failure Brother Hypertension Social History household members: spouse Smoking Status: Never smoker second hand exposure: No alcohol intake: current substance use type: does not use Meds Home Medications and Allergies Home Medications Medication Instructions Recorded Confirmed Type indomethacin 25 mg capsule 25 mg PO TID PRN diarrhea 05/07/22 08/20/22 History loratadine 10 mg tablet 10 mg PO DAILY PRN diarrhea 05/07/22 08/20/22 History ibuprofen 800 mg tablet 800 mg PO TID PRN pain #30 tabs 06/14/22 08/20/22 Rx felodipine 10 mg tablet,extended 10 mg PO DAILY #90 tabs 06/18/22 08/20/22 Rx release 24 hr levothyroxine 100 mcg tablet 100 mcg PO DAILY #90 tabs 06/18/22 08/20/22 Rx (Synthroid) rosuvastatin 10 mg tablet 10 mg PO DAILY #90 tabs 06/18/22 08/20/22 Rx Allergies Allergy/AdvReac Type Severity Reaction Status Date / Time No Known Drug Allergies Allergy Verified 08/17/22 19:56 Exam Vital Signs (past 8 hours): - 08/20/22 09:10 08/20/22 15:46 08/20/22 16:59 Temperature 96.9 F L 97.9 F 98.1 F Pulse Rate 64 54 L 62 Respiratory Rate 16 16 20 Blood Pressure 146/84 H 135/86 136/88 Pulse Oximetry 100 98 98 Oxygen Delivery Method Room Air Oxygen Delivery Method Room Air Narrative Exam Narrative: General adult man alert oriented no acute distress Chest nonlabored respiration Abdomen tender right upper quadrant no jose peritonitis. Objective Labs 08/20/22 07:00 08/20/22 07:00 Labs: Laboratory Results - last 24 hr 08/20/22 08/20/22 08/20/22 07:00 07:00 07:00 WBC 13.1 H RBC 5.11 Hgb 15.6 Hct 44.9 MCV 87.9 MCH 30.5 MCHC 34.7 RDW 13.7 Plt Count 190 Neut % (Auto) 82.5 H Lymph % (Auto) 12.3 L [place] % (Auto) 4.2 Eos % (Auto) 0.5 L Baso % (Auto) 0.5 Neut # (Auto) 98203 H Lymph # (Auto) 1600 [place] # (Auto) 500 Eos # (Auto) 100 Baso # (Auto) 100 Sodium 140 Potassium 3.2 L Chloride 101 Carbon Dioxide 27 BUN 14 Creatinine 1.00 Estimated GFR > 60 BUN/Creatinine Ratio 14.0 Glucose 155 H Calcium 9.4 Total Bilirubin 0.7 AST 34 ALT 27 Alkaline Phosphatase 83 Total Protein 8.9 H Albumin 5.1 H Globulin 3.8 Albumin/Globulin Ratio 1.3 Lipase 64 SARS-CoV-2 (PCR) Negative Assessment & Plan Assessment and plan (1) Acute cholecystitis: Status: Acute Assessment & Plan narrative: 62-year-old man with acute cholecystitis. I reviewed his imaging from few days ago an abdominal ultrasound which demonstrates multiple gallstones at the time he did not have signs of acute cholecystitis. Today he has leukocytosis and a positive Lanier's sign LFTs are normal. I explained to the patient that he likely has acute cholecystitis and given that his recurrent episodes of biliary colic my recommendation is to proceed with laparoscopic cholecystectomy. Overview of the operation was discussed. Operative risks including but not limited to hemorrhage, infection damage to surrounding structures, conversion to open, embolism, stroke, heart attack were discussed. Questions have been answered he is in agreement with this plan. He provides his written and verbal consent to proceed.
--- NOTE | 2022-08-20 17:23 | SUR.HOLD ---
Irregular heartbeat noted when auscultating heart sounds. Three-lead EkG strip printed. Notified ZAHRAA Mckeon; Twelve-lead EKG ordered and completed at bedside. Afibrillation noted. Asymptomatic. Dr Morales aware.
[2022-08-20] MEDS: CEFAZOLIN 2 GM/100 ML PREMIX 100 ML IV (17:35)
--- NOTE | 2022-08-20 17:35 | PC.NURSE ---
Day shift: Took over RN care of patient at 1500. PACU nurse came to transport down to OR at 1630. gave me a copy of patient's advanced directives, which I put in the chart.
--- NOTE | 2022-08-20 17:49 | SUR.OPER ---
Supine on padded OR bed, head on pillow, arms padded and tucked at sides, legs uncrossed, safety belt at thigh, tape over blanket over lower legs .
[2022-08-20] MEDS: BUPIVACAINE 0.25% (PF) VIAL 30 ML INJ (17:58)
--- NOTE | 2022-08-20 19:10 | P.OP_ITS ---
Operative Date/Time/Diagnoses Date of procedure: 08/20/22 Time of procedure: 19:10 Pre-op diagnosis: Acute cholecystitis Post-op diagnosis: same Procedure & Clinicians Procedure: Laparoscopic cholecystectomy Same procedure as scheduled: Yes Indications: 62-year-old man who presented with signs and symptoms consistent with acute cholecystitis. Following discussion he elects to proceed to the operating room for a laparoscopic cholecystectomy Surgeon: Christofer Morales Anesthesia Type: General Operative Notes Findings: Acute on chronic cholecystitis. Hydrops of gallbladder Specimen(s): other (Gallbladder) Estimated Blood Loss (mL): 100 Procedure in detail: The patient was placed supine on the table and bilateral lower extremity compression devices were applied. Anesthesia was induced they were intubated with an endotracheal tube and received 2g of Ancef. A time-out was performed. They were prepped and draped in sterile fashion. An infraumbilical incision was made. The fascia was elevated incised and the abdomen was entered atraumatically. A blunt tip 12mm balloon trocar was then inserted, pneumoperitoneum was established and inspection of the abdomen demonstrated no evidence of injury. They were placed head up and right side up and then a 11 mm port was placed high in the epigastrium and two 5mm in the right upper quadrant. The bladder was acute on chronically inflamed. It was hydropic and there were omental adhesions to the gallbladder consistent with chronic inflammation. The duodenum was tethered to the infundibulum of the gallbladder was taken down with sharp dissection.. The gallbladder was grasped by the fundus and retracted over the liver and retracted laterally by the infundibulum. Using electrocautery the lateral plane between the gallbladder and the liver was opened towards the fundus. The gallbladder was then retracted laterally and the medial plane was developed in the same manner. With the gallbladder mobilized the bottom of the cystic plate was visualized. The hepatocystic triangle was meticulosly skeletonized with blunt dissection of fat and fibrous tissue from both the front and the back. Only two structures were then clearly seen entering the gallbladder the cystic duct and the cystic artery. With the critical view of safety fully established the cystic duct was clipped twice proximally and once distally using the 10 mm Weck hemoclip applied under direct visualization and then sharply divided. The cystic artery was divided in the same fashion. The g allbladder was removed from the liver bed using electro cautery. The liver bed was then inspected for hemostasis and this was achieved. The abdomen was irrigated with sterile saline and inspection was made that showed the clips in good position. The specimen was removed using Endo-Catch. The abdomen was desufflated. The umbilical fascia was closed with 0 Vicryl in a [id number] fashion under direct visualization. Skin incisions were irrigated and closed with 4-0 Monocryl. 30 ml of 0.25% bupivacaine was infiltrated into the subcutaneous tissue of the incisions. The wounds were sealed with Dermabond. Patient emerged from anesthesia was extubated and transferred to recovery in stable condition. The sponge and instrument count at the end of the operation was correct. Complications: none Post-operative Condition: stable Disposition: observation
[2022-08-20] MEDS: HYDROMORPHONE 2 MG INJ IV (19:13)
[2022-08-20] MEDS: OXYCODONE/ACETAMINOPHEN 5/325 TABLET 1 TAB PO (19:33)
--- NOTE | 2022-08-20 19:46 | SUR.PHASEI ---
Requested Dr Morales consult hospitalist for new onset afib in patient.
[2022-08-20] MEDS: SODIUM CHLORIDE 0.9% 1,000 ML 100 ML IV (20:12)
--- NOTE | 2022-08-20 20:41 | P.CONS_ITS ---
History of Present Illness Consult details Date Patient Seen: 08/20/22 Time Patient Seen: 20:41 Chief complaint: throwing up, gall stones Reason for consult: S/P abdelrahman, new onset AFib with bradycardia Narrative: Alberto Tran is a 62-year-old male with a medical history CVA, gout, HLD, HTN, hypothyroidism, and Raynaud's who was taken to the OR for cholecystectomy for acute cholecystitis. OR nurse reported that she found the patient to be in AFib per EKG while in the OR patient, with continued bradycardia heart rates 40-50. In reviewing Dr. Huerta PCP records back to 2020 patient's heart rate has been between 40-60's at base line. Patient is still fairly sedated from the OR and desats into the 70-80's when he falls asleep, placed on 3 L/NC to maintain 02sat in the 90's. Patient denies any cardiac history, no prior workup or risk stratification, no history of atrial fibrillation, and denies palpitations, irregular heart rate, or sensing AFib. Patient does note that his father at age 43 of cardiac arrest w/CHF, his brother has a pacemaker, and all his siblings & extended family have significant cardiac history. Patient's was at the bedside we discussed atrial fibrillation and plan of care. Vitals on admit temp 97.3?, 140/90, 51, 16, 92% on 3 L/NC. Patient is stable and resting comfortably. Patient denies chest pain, shortness in breath, headache, difficulty swallowing, speech impairment, weakness, numbness, tingling, difficulty with ambulation, recent falls, head injury, LOC, fever, body aches, chills, cough, recent exposure to illness, urinary incontinence/retention, dysuria, frequency, urgency, hematuria, incontinence, melena, rashes, recent changes to medication, illness, injury, or trauma. Meds Home Medications and Allergies Home Medications Medication Instructions Recorded Confirmed Type indomethacin 25 mg capsule 25 mg PO TID PRN diarrhea 05/07/22 08/20/22 History loratadine 10 mg tablet 10 mg PO DAILY PRN diarrhea 05/07/22 08/20/22 History ibuprofen 800 mg tablet 800 mg PO TID PRN pain #30 tabs 03/20/23 05/26/23 Rx felodipine 10 mg tablet,extended 10 mg PO DAILY #90 tabs 06/18/22 08/20/22 Rx release 24 hr levothyroxine 100 mcg tablet 100 mcg PO DAILY #90 tabs 06/18/22 08/20/22 Rx (Synthroid) rosuvastatin 10 mg tablet 10 mg PO DAILY #90 tabs 06/18/22 08/20/22 Rx acetaminophen 325 mg capsule 650 mg PO QID PRN pain #60 caps 08/20/22 Rx (Tylenol) oxycodone 5 mg tablet 5 mg PO Q6H PRN pain #15 tabs 08/20/22 Rx Allergies Allergy/AdvReac Type Severity Reaction Status Date / Time No Known Drug Allergies Allergy Verified 08/17/22 19:56 Review of Systems Review of Systems Narrative: All 12 point systems reviewed with the patient and are negative except otherwise documented. Exam Vital Signs (past 8 hours): - 08/20/22 15:46 08/20/22 16:59 08/20/22 18:50 Temperature 97.9 F 98.1 F 97.4 F L Pulse Rate 54 L 62 61 Respiratory Rate 16 20 11 L Blood Pressure 135/86 136/88 153/82 H Pulse Oximetry 98 98 94 Oxygen Delivery Method Room Air Nasal Cannula Oxygen Flow Rate 4 08/20/22 18:54 08/20/22 18:59 08/20/22 19:12 Temperature Pulse Rate 65 64 43 L Respiratory Rate 12 11 L 11 L Blood Pressure 143/89 H 141/91 H 149/87 H Pulse Oximetry 93 94 96 Oxygen Delivery Method Nasal Cannula Nasal Cannula Nasal Cannula Oxygen Flow Rate 3 3 3 08/20/22 19:17 08/20/22 19:35 Temperature 97 F L Pulse Rate 45 L 42 L Respiratory Rate 11 L 15 Blood Pressure 152/89 H 153/82 H Pulse Oximetry 97 97 Oxygen Delivery Method Nasal Cannula Nasal Cannula Oxygen Flow Rate 3 3 Oxygen Delivery Method Nasal Cannula Oxygen Flow Rate 3 Narrative Exam Narrative: General: Patient is a well-developed, well-nourished male S/P lap abdelrahman, resting comfortably, in no distress at this time. HEENT: Normocephalic, atraumatic, extraocular muscles intact, oral pharynx is clear and mucous membranes are moist. Neck is supple and symmetric, trachea is midline, no adenopathy, no thyroid enlargement, nontender, no masses palpated. Negative for JVD Chest: Normal AP diameter and contour without kyphoscoliosis, no nasal flaring, retractions, or tachypneic labored breathing. Lungs: Auscultation of all lung aguila are clear without adventitious sounds, wheezes, rhonchi, or rales. Cardio: Bradycardic irregular rate and atrial fibrillation rhythm without murmur, rubs, or gallops, no carotid bruit, no cardiac pulsations present. Abdomen: Abdomen is distended multiple dressings in place from laparoscopic procedure clean dry and intact without signs of infection. Musculoskeletal: Muscle strength and tone are equal within normal limits, no deformity, crepitus, effusions, cyanosis, clubbing or edema present. Full range of motion intact radial and pedal pulses are normal. Skin: Warm dry and intact without rashes, ulcerations or petechiae. Multiple dressings in placed abdomen S/P lap abdelrahman Neuro: Alert and orientated x3, moves all extremities, sensation to touch intact, no gross deficits noted of cranial nerves. Psych: Patient has a well-kept appearance, appropriate affect, dozes off during admit exam is still somewhat sedated from postop, mental status attitude thought context and judgment are appropriate for age. Objective Labs 08/20/22 07:00 08/20/22 07:00 Labs: Laboratory Results - last 24 hr 08/20/22 08/20/22 08/20/22 07:00 07:00 07:00 WBC 13.1 H RBC 5.11 Hgb 15.6 Hct 44.9 MCV 87.9 MCH 30.5 MCHC 34.7 RDW 13.7 Plt Count 190 Neut % (Auto) 82.5 H Lymph % (Auto) 12.3 L [place] % (Auto) 4.2 Eos % (Auto) 0.5 L Baso % (Auto) 0.5 Neut # (Auto) 29843 H Lymph # (Auto) 1600 [place] # (Auto) 500 Eos # (Auto) 100 Baso # (Auto) 100 Sodium 140 Potassium 3.2 L Chloride 101 Carbon Dioxide 27 BUN 14 Creatinine 1.00 Estimated GFR > 60 BUN/Creatinine Ratio 14.0 Glucose 155 H Calcium 9.4 Total Bilirubin 0.7 AST 34 ALT 27 Alkaline Phosphatase 83 Total Protein 8.9 H Albumin 5.1 H Globulin 3.8 Albumin/Globulin Ratio 1.3 Lipase 64 SARS-CoV-2 (PCR) Negative PFSH Medical History (Updated 08/20/22 @ 21:36 by DARIAN Whaley-KOKI) CVA (cerebral vascular accident) Epididymitis Gout Hyperlipidemia Hypertension Hypothyroidism (acquired) Raynaud's disease Well adult on routine health check Surgical History (Updated 08/20/22 @ 21:06 by RICHA Whaley) H/O hernia repair History of vasectomy Hx laparoscopic cholecystectomy Family History (Updated 08/20/22 @ 21:07 by RICHA Whaley) Father Hypertension Congestive heart failure Brother Hypertension Pacemaker Social History marital status: household members: spouse Tobacco & Substance Use Smoking Status: Never smoker second hand exposure: No alcohol intake: current substance use type: does not use Assessment & Plan Assessment & Plan narrative: Alberto Tran is a 62-year-old male with a medical history CVA, gout, HLD, HTN, Raynaud's who was taken to the OR for cholecystectomy by Dr. Morales for acute cholecystitis. Found to be in AFib per EKG while in the OR with sustained basel ine bradycardia w/ desaturation. Dr. Morales graciously requested that the hospitalist Service consult regarding the patient's new onset of atrial fibrillation. Atrial fibrillation, with bradycardia, acute, new onset * Reviewed EKG from the OR: Rate 60, atrial fibrillation with T-wave abnormality. * May cardiovert once potassium is reconciled. * Baseline bradycardia chronic HR 40 to 60s. Heart Score:4 * Atrial fibrillation workup, with risk stratification * Patient is stable asymptomatic at this time will monitor closely. * Patient placed on tele, ordered stat CBC, CMP, Mag, troponin, BNP, TSH/T4, & repeat am labs * Potassium 3.2 at 7:00 a.m. this morning on admit-no replacement was provided will address based on stat labs * Holding felodipine * S/P, continuous pulse ox over night, continue titration oxygen for O2 sat goal>90% * Ordered echo * Holding off on anticoagulation as patient is postop. * Discussed with patient/ that he may require a pacemaker due to the bradycardia, he noted that his brother has a pacemaker. Hypokalemia, acute, secondary to gastrointestinal loss (vomiting) secondary to cholecystitis * 7:00 a.m. potassium 3.2, ordered stat lab * If needed- order K rider for replacement Status post lap cholecystectomy due to acute cholecystitis * Managed by Dr. Morales general surgery Hypothyroidism, chronic * Patient has not had levels checked in a very long time may be contributing to atrial fibrillation * Order TSH/T4 * Continue levothyroxine Hypertension, essential, chronic * Holding felodipine due to Bradycardia HR 40-50's * Currently 140/90 Hyperlipidemia, chronic * Replace rosuvastatin with atorvastatin History of CVA 2000, chronic * Continue atorvastatin Code status:Full Surrogate decision maker: Jaz Tran ZAINA PCR: Negative DVT/VTE prophylaxis: Medication being held due to status postop, SCDs only Disposition: Patient requires atrial fibrillation workup, echocardiogram, anticoagulation once Dr. Morales deems appropriate and safe, stay not expected to exceed 2 midnights. I have utilized all available immediate resources to obtain, update, or review the patient's current medications. I confirmed that the patient's advanced care plan is present, Code status is documented and/or surrogate decision maker is listed in the patient's medical record. I have personally reviewed patient's chart notes from PCP, specialists, diagnostic imaging, and laboratory results.
--- NOTE | 2022-08-20 21:34 | PC.NURSE ---
Addendum entered by Grace Jha R.N. 08/20/22 21:52: Fall risk score is moderate but patient agreeable to calling for assist and rooming in so alarm not activated at this time. Original Note: Patient returned from surgery to room 203 at 2003. Reported to have been found in afib SVR prior to surgery with rates as low as 39 but asymptomatic. Hospitalist, Leonard, in room to consult. Patient placed on telemetry and was in afib SVR. Is oriented but drowsy due to pain meds he received in PACU just prior to arrival. Breath sounds CTA but respirations are shallow and RA sat in mid to upper 80's on room air; placed on oxygen at 3L/min with sat of 92% and continuous oximetry in place to monitor. Patient with Raynaud's so ear oximeter is being used for greater accuracy. Denies nausea. Abdomen is distended but soft; tender in right lower abdomen. Allevyn dressings x4 to abdomen are all CDI. Voided at 1700 and has not voided as yet since surgery. Is able to move himself in bed and encourged to TCDB to prevent post-op complications; verbalized understanding. Bilateral calf SCD's applied. States pain is only 1-2/10 and tolerable; ice pack in place from PACU. Fall risk score is low. rooming in.
[2022-08-20 21:51] LABS: PTT Partial Thromboplastin Tim 26 SECONDS (26-36)
[2022-08-20 22:10] LABS: Cholesterol 182 mg/dL (140-199); HDL Cholesterol 53 mg/dL (40-60); LDL Cholesterol Calculated 102 mg/dL (<100); Magnesium 1.8 mg/dL (1.6-2.3); Triglycerides 133 mg/dL (35-150)
[2022-08-20 22:11] LABS: Alanine Aminotransferase 66 IU/L (<50); Albumin 4.1 g/dL (3.5-5.0); Albumin Globulin Ratio 1.2 (1.0-2.8); Alkaline Phosphatase 66 U/L (38-126); Aspartate Aminotransferase 98 IU/L (17-59); Bilirubin Total 0.6 mg/dL (0.2-1.3); Blood Urea Nitrogen 9 mg/dL (9-20); Calcium 8.3 mg/dL (8.4-10.2); Carbon Dioxide 26 mmol/L (22-32); Chloride 105 mmol/L (98-107); Estimated Glomerular Filt Rate > 60 mL/min (>60); Globulin 3.3 g/dL (1.7-4.1); Glucose 134 mg/dL (80-110); HEMOLYSIS < 15 (0-50); Potassium 3.9 mmol/L (3.4-5.1); Sodium 139 mmol/L (137-145); Total Protein 7.4 g/dL (6.3-8.2)
[2022-08-20 22:20] LABS: NT-proBNP (BNP-Adult 18+) 742 pg/mL (<125)
[2022-08-20 22:23] LABS: Troponin I < 0.012 ng/mL (0.01-0.034)
[2022-08-20 22:31] LABS: Free T4, Direct Thyroxine 1.21 ng/dL (0.78-2.19)
[2022-08-20 22:44] LABS: Thyroid Stimulating Hormone 2.58 uIU/mL (0.47-4.68)
[2022-08-20 23:52] LABS: Add Manual Diff / Slide Review NO; Basophils Absolute Auto 0 /uL (0-100); Basophils Percent Auto 0.2 % (0-2); Eosinophils Absolute Auto 0 /uL (0-450); Eosinophils Percent Auto 0.1 % (2-4); Hematocrit 40.7 % (41-53); Lymphocytes Absolute Auto 500 /uL (1100-4500); Lymphocytes Percent Auto 3.8 % (25-40); Mean Corpuscular HGB Conc 34.3 % (30-36); Mean Corpuscular Hemoglobin 30.6 PG (26-34); Monocytes Absolute Auto 200 /uL (0-900); Monocytes Percent Auto 1.7 % (3-14); Neutrophils Absolute Auto 13000 /uL (1500-7000); Neutrophils Percent Auto 94.2 % (50-75); Platelet Count 190 X10^3/uL (150-400); Red Blood Cell Count 4.57 X10^6/uL (4.5-5.9); White Blood Cell Count 13.7 X10^3/uL (4.5-11.0)
[2022-08-21] VITALS (8 sets, daily range): BP systolic 139–158; BP diastolic 79–90; PULSE 68–90; RESP 16–22; TEMP 36.5–36.9; O2SAT 93–95
[2022-08-21] MEDS: ACETAMINOPHEN 325 MG TABLET 650 MG PO ×3 (01:01→13:09)
[2022-08-21 02:55] LABS: Add Manual Diff / Slide Review NO; Basophils Absolute Auto 300 /uL (0-100); Basophils Percent Auto 2.8 % (0-2); Eosinophils Absolute Auto 0 /uL (0-450); Eosinophils Percent Auto 0.3 % (2-4); Hematocrit 38.7 % (41-53); Hemoglobin 13.5 g/dL (13.5-17.5); Lymphocytes Absolute Auto 600 /uL (1100-4500); Lymphocytes Percent Auto 5.9 % (25-40); Mean Corpuscular HGB Conc 34.9 % (30-36); Mean Corpuscular Volume 88.8 fL (80-100); Monocytes Absolute Auto 200 /uL (0-900); Monocytes Percent Auto 2.6 % (3-14); Neutrophils Absolute Auto 8400 /uL (1500-7000); Neutrophils Percent Auto 88.4 % (50-75); Platelet Count 190 X10^3/uL (150-400); Red Blood Cell Count 4.35 X10^6/uL (4.5-5.9); White Blood Cell Count 9.5 X10^3/uL (4.5-11.0)
[2022-08-21 02:58] LABS: INR 1.1 (0.9-1.3)
[2022-08-21 03:03] LABS: Alanine Aminotransferase 70 IU/L (<50); Albumin 3.9 g/dL (3.5-5.0); Albumin Globulin Ratio 1.3 (1.0-2.8); Alkaline Phosphatase 61 U/L (38-126); Aspartate Aminotransferase 93 IU/L (17-59); BUN Creatinine Ratio 10.8 (6-22); Bilirubin Total 0.8 mg/dL (0.2-1.3); Blood Urea Nitrogen 9 mg/dL (9-20); Calcium 8.4 mg/dL (8.4-10.2); Carbon Dioxide 26 mmol/L (22-32); Chloride 106 mmol/L (98-107); Estimated Glomerular Filt Rate > 60 mL/min (>60); Globulin 3.1 g/dL (1.7-4.1); Glucose 134 mg/dL (80-110); HEMOLYSIS < 15 (0-50); Magnesium 1.7 mg/dL (1.6-2.3); Potassium 4.3 mmol/L (3.4-5.1); Sodium 137 mmol/L (137-145)
[2022-08-21 03:14] LABS: Troponin I < 0.012 ng/mL (0.01-0.034)
[2022-08-21] MEDS: LEVOTHYROXINE 100 MCG TABLET PO (05:56)
[2022-08-21] MEDS: SODIUM CHLORIDE 0.9% 1,000 ML 100 ML IV (05:56)
[2022-08-21] MEDS: AMLODIPINE 5 MG TABLET 10 MG PO (08:40)
[2022-08-21] MEDS: ATORVASTATIN 20 MG TABLET PO (08:40)
[2022-08-21] MEDS: MAGNESIUM CHLORIDE 64 MG TABLET 128 MG PO (08:41)
[2022-08-21 09:09] LABS: Troponin I < 0.012 ng/mL (0.01-0.034)
--- NOTE | 2022-08-21 12:03 | PM.PN.1 ---
Subjective Subjective Date Patient Seen: 08/21/22 Time Patient Seen: 12:03 Interval history: Postop day 1 following lap abdelrahman no complaints. He was noted to be in atrial fibrillation with bradycardia. Echo is pending. Exam Vital Signs (past 8 hours): - 08/21/22 05:00 08/21/22 07:00 08/21/22 09:00 Temperature 98.2 F Pulse Rate 68 Respiratory Rate 17 Blood Pressure 158/83 H Pulse Oximetry 94 95 95 Oxygen Delivery Method Oximask Room Air Oxygen Flow Rate 4 0 0 08/21/22 11:29 Temperature 97.7 F Pulse Rate 76 Respiratory Rate 22 Blood Pressure 144/90 H Pulse Oximetry 95 Oxygen Delivery Method Oxygen Flow Rate 0 Oxygen Delivery Method Room Air Oxygen Flow Rate 0 Const General: No acute distress Resp Effort & Inspection: normal respiratory effort GI Other: Laparoscopic dressings in place No peritonitis Objective Labs 08/21/22 02:40 08/21/22 02:40 Labs: Laboratory Results - last 24 hr 08/20/22 08/20/22 08/20/22 21:13 21:13 21:13 WBC RBC Hgb Hct MCV MCH MCHC RDW Plt Count Neut % (Auto) Lymph % (Auto) Amador % (Auto) Eos % (Auto) Baso % (Auto) Neut # (Auto) Lymph # (Auto) [place] # (Auto) Eos # (Auto) Baso # (Auto) PT INR APTT 26 Sodium 139 Potassium 3.9 Chloride 105 Carbon Dioxide 26 BUN 9 Creatinine 0.82 Estimated GFR > 60 BUN/Creatinine Ratio 11.0 Glucose 134 H Calcium 8.3 L Magnesium 1.8 Total Bilirubin 0.6 AST 98 H ALT 66 H Alkaline Phosphatase 66 Troponin I NT-Pro-B Natriuret Pep 742 H Total Protein 7.4 Albumin 4.1 Globulin 3.3 Albumin/Globulin Ratio 1.2 Triglycerides Cholesterol LDL Cholesterol, Calc HDL Cholesterol TSH Free T4 08/20/22 08/20/22 08/20/22 21:13 21:13 21:13 WBC RBC Hgb Hct MCV MCH MCHC RDW Plt Count Neut % (Auto) Lymph % (Auto) Amador % (Auto) Eos % (Auto) Baso % (Auto) Neut # (Auto) Lymph # (Auto) [place] # (Auto) Eos # (Auto) Baso # (Auto) PT INR APTT Sodium Potassium Chloride Carbon Dioxide BUN Creatinine Estimated GFR BUN/Creatinine Ratio Glucose Calcium Magnesium Total Bilirubin AST ALT Alkaline Phosphatase Troponin I < 0.012 NT-Pro-B Natriuret Pep Total Protein Albumin Globulin Albumin/Globulin Ratio Triglycerides 133 Cholesterol 182 LDL Cholesterol, Calc 102 H HDL Cholesterol 53 TSH 2.58 Free T4 1.21 08/20/22 08/21/22 08/21/22 21:13 02:40 02:40 WBC 13.7 H RBC 4.57 Hgb 14.0 Hct 40.7 L MCV 89.0 MCH 30.6 MCHC 34.3 RDW 14.0 Plt Count 190 Neut % (Auto) 94.2 H Lymph % (Auto) 3.8 L [place] % (Auto) 1.7 L Eos % (Auto) 0.1 L Baso % (Auto) 0.2 Neut # (Auto) 10153 H Lymph # (Auto) 500 L [place] # (Auto) 200 Eos # (Auto) 0 Baso # (Auto) 0 PT 13.0 H INR 1.1 APTT Sodium Potassium Chloride Carbon Dioxide BUN Creatinine Estimated GFR BUN/Creatinine Ratio Glucose Calcium Magnesium Total Bilirubin AST ALT Alkaline Phosphatase Troponin I < 0.012 NT-Pro-B Natriuret Pep Total Protein Albumin Globulin Albumin/Globulin Ratio Triglycerides Cholesterol LDL Cholesterol, Calc HDL Cholesterol TSH Free T4 08/21/22 08/21/22 08/21/22 02:40 02:40 08:40 WBC 9.5 RBC 4.35 L Hgb 13.5 Hct 38.7 L MCV 88.8 MCH 31.0 MCHC 34.9 RDW 14.0 Plt Count 190 Neut % (Auto) 88.4 H Lymph % (Auto) 5.9 L [place] % (Auto) 2.6 L Eos % (Auto) 0.3 L Baso % (Auto) 2.8 H Neut # (Auto) 8400 H Lymph # (Auto) 600 L [place] # (Auto) 200 Eos # (Auto) 0 Baso # (Auto) 300 H PT INR APTT Sodium 137 Potassium 4.3 Chloride 106 Carbon Dioxide 26 BUN 9 Creatinine 0.83 Estimated GFR > 60 BUN/Creatinine Ratio 10.8 Glucose 134 H Calcium 8.4 Magnesium 1.7 Total Bilirubin 0.8 AST 93 H ALT 70 H Alkaline Phosphatase 61 Troponin I < 0.012 NT-Pro-B Natriuret Pep Total Protein 7.0 Albumin 3.9 Globulin 3.1 Albumin/Globulin Ratio 1.3 Triglycerides Cholesterol LDL Cholesterol, Calc HDL Cholesterol TSH Free T4 PFSH Medical History (Updated 08/21/22 @ 12:04 by Raymond Fall MD) CVA (cerebral vascular accident) Epididymitis Gout Hyperlipidemia Hypertension Hypothyroidism (acquired) Raynaud's disease Well adult on routine health check Surgical History (Updated 08/20/22 @ 21:06 by Maddison Valle [facility]) H/O hernia repair History of vasectomy Hx laparoscopic cholecystectomy Family History (Updated 08/20/22 @ 21:07 by [facility] Father Hypertension Congestive heart failure Brother Hypertension Pacemaker Social History marital status: household members: spouse Smoking Status: Never smoker second hand exposure: No alcohol intake: current substance use type: does not use Assessment & Plan Assessment and plan (1) Postoperative examination: Status: Acute Plan Okay to discharge home from a surgical standpoint Okay to be on anticoagulation Follow up with Dr. Morales for postop visit 2-3 weeks
--- NOTE | 2022-08-21 12:08 | DI.ECHO.S_ITS ---
[place] [facility] +---------+ : : [address] : : : : [id number] : : : : Phone: [phone]+ Echocardiogram Report + + :Name: NIC ARMENDARIZ Study Date: 08/21/2022 Height: 68 in : :[facility] ReadingLocation: Weight: 187 lb: : Gender: Other BSA: 2.0 m2 : :: 1960 Age: 62 yrs : :Reason For Study: New onset Atrial fibrillation : :Ordering Physician: PARAS, : :LAUREL Performed By: Jaz Rabago : :Referring: LAUREL CRAIN : + + Interpretation Summary The left ventricle appears normal in size, wall thickness, and systolic function without any focal wall motion abnormalities. The ejection fraction is estimated to be 60-65%. Diastolic function could not be accurately assessed due to atrial fibrillation. The right ventricle is borderline dilated. The right ventricular systolic function is normal. The right ventricular systolic pressure is estimated to be at least 28 mmHg based on an estimated right atrial pressure of 3 mm Hg. The left atrium is moderately dilated. Right atrial size is normal. There is borderline mitral valve prolapse. There is mild mitral regurgitation. There is no other significant valvular heart disease. The aortic root is borderline dilated. Procedure: A two-dimensional transthoracic echocardiogram with color flow and Doppler was performed. The study quality was technically adequate. There is no prior echocardiogram noted for this patient. The patient was in atrial flutter with heart rates between 67-90 bpm during the exam. Left Ventricle: The left ventricle appears normal in size, wall thickness, and systolic function without any focal wall motion abnormalities. The ejection fraction is estimated to be 60-65%. Diastolic function could not be accurately assessed due to atrial fibrillation. Right Ventricle: The right ventricle is borderline dilated. The right ventricular systolic function is normal. Atria: The left atrium is moderately dilated. Right atrial size is normal. There is no Doppler evidence for an interatrial shunt. Mitral Valve: The mitral valve leaflets appear to open well. There is borderline mitral valve prolapse. There is mild mitral regurgitation. Aortic Valve: The aortic valve is normal in structure and function. No aortic regurgitation is present. Tricuspid Valve: The tricuspid valve is normal in structure and function. There is mild tricuspid regurgitation. The right ventricular systolic pressure is estimated to be at least 28 mmHg based on an estimated right atrial pressure of 3 mm Hg. Pulmonic Valve: The pulmonic valve leaflets are thin and pliable; valve motion is normal. There is a trace or physiologic amount of pulmonic regurgitation. There is no other significant valvular heart disease. Great Vessels: The aortic root is borderline dilated. The ascending aorta is normal in size. The pulmonary artery is normal size. The IVC is of normal diameter and collapses greater than 50% with a sniff. This suggests a low right atrial pressure of 3 mm Hg. Pericardium/ Pleura There is no pericardial effusion. MMode/2D Measurements & Calculations LVIDd: 5.4 cm LVOT diam: 2.3 cm LVIDs: 2.8 cm Ao root diam: 3.7 cm FS: 47.9 % asc Aorta Diam: 3.3 cm IVSd: 0.94 cm Ao Arch Diam (Prox Trans): 2.8 cm LVPWd: 0.81 cm LV will. diameter/BSA (cm/m^2): 2.7 LV sys. diameter/BSA (cm/m^2): 1.4 LA A2 area: 24.7 cm2 RA long axis: 5.0 cm LA A4 area: 25.6 cm2 RA area: 10.5 cm2 LA length (vol): 6.5 cm RA vol: 18.5 ml LA vol: 83.2 ml RA : 9.3 ml/m2 LA vol index: 41.9 ml/m2 IVC diam: 1.4 cm RVD1 (basal): 4.1 cm TAPSE: 1.9 cm Doppler Measurements & Calculations Ao V2 max: 110.8 cm/sec LVOT Max Nilton: 74.6 cm/sec Ao V2 mean: 77.1 cm/sec LV V1 max P.2 mmHg Ao max P.9 mmHg LV V1 VTI: 12.4 cm Ao mean P.6 mmHg FRANCISCO(I,D): 3.1 cm2 Ao V2 VTI: 16.9 cm FRANCISCO(V,D): 2.8 cm2 sev ratio: 0.73 FRANCISCO indexed to BSA (cm^2/m^2): 1.5 MV E max nilton: 127.5 cm/sec TR max nilton: 247.9 cm/sec MV A max nilton: 38.6 cm/sec TR max P.6 mmHg MV E/A: 3.3 PA V2 max: 69.5 cm/sec Med Peak E' Nilton: 11.8 cm/sec PA V2 mean: 48.4 cm/sec E/E' med: 10.8 PA mean P.0 mmHg Lat Peak E' Nilton: 15.5 cm/sec PA Accel Time: 0.08 sec E/E' lat: 8.2 E/e' average: 9.5 MV dec time: 0.13 sec MR PISA: 1.3 cm2 SV(LVOT): 51.9 ml MR flow rate: 52.9 cm3/sec MR PISA radius: 0.46 cm Reading Physician:03:24 PM
--- NOTE | 2022-08-21 14:38 | CM.DANOTE ---
DCP: Patient is a 62yo M here as INPT recovering post op from cholecystectomy for acute cholecystitis. He was in AFib while in OR. Echo done and results are pending. Payer: [employer] PCP: Dr. Bradley GUSTAFSON entered room and introduced self and role. Patient was A/Ox4 and was accompanied by and emergency contact, Mabel ([phone]). Patient reported feeling better as the day has gone on. Patient reported waiting on echo results to see if he can go home today. Patient had questions regarding discharge paperwork and follow up appointments. This author acted within area of competency and referred patient to provider for answers to those and other additional medical concerns. Patient concerned about having right paperwork for work excuse. Patient reports being independent with ADLs at baseline, drives his own vehicle, and works at [employer] [place]. Patient reports his , Mabel, can drive him home and help him care for any additional needs upon d/c. Per provider note, patient clear to d/c from surgical standpoint. Currently waiting echo results. Plan: d/c either later today or tomorrow home with . CM team will continue to follow for additional needs. SJ Tan Discharge Planning/Care Management Advanced directive, confirm from FAMILY Start: 08/20/22 11:08 Freq: Q24H Status: Active Protocol: Document 08/20/22 15:40 SB (Rec: 08/20/22 15:40 SB [id number]) Advance Directive, confirm on record Time 15:40 Person contacted Copy received Yes Advanced directive available on record Yes CM Discharge Assessment Start: 08/21/22 14:35 Freq: Status: Active Protocol: Document 08/21/22 14:35 SL (Rec: 08/21/22 14:38 SL [id number]) Discharge Planning Assessment Assigned Outlet Manager SJ Tan DPOA/Assigned Designee Name Mabel Tran (spouse) Contact Information [phone] Advance Directives? Yes Advance Directives on File No History Provided By Patient,Family Member,Medical Record Has Patient been admitted in last 30 No days? Prior Living Arrangements House Household Members spouse Type of transporation used prior to Drives own vehicle admit Independent with ADL's Yes Is patient alert and oriented? Yes Barriers to Discharge No Discharge Plan Home Transportation Arrangement will drive him home Whiteboard Updated in Patient Room with Yes name and ext. # of Outlet Manager Review Status In Process Next Review Type Continued Stay Review
--- NOTE | 2022-08-21 16:04 | P.PN_ITS ---
Subjective Subjective Interval history: 62-year-old male with prior remote stroke in his early 40s of unclear etiology, gout, hyperlipidemia, hypertension, hypothyroidism, and Raynaud's Syndrome who was admitted to the hospital for acute cholecystitis. on the operating room last evening, he was noted to be in atrial fibrillation with associated bradycardia. Heart rates were noted to be in the 40-50 range. Postoperatively his heart rate improved and has remained in the 70s to 80s. No tachycardia overnight. No chest pain. He has no awareness of the arrhythmia, but notes when he showered today he could tell there was something different. With regard to his abdominal pain, he states it is significantly improved. Exam Vital Signs (past 8 hours): - 08/21/22 09:00 08/21/22 11:29 08/21/22 13:00 Temperature 97.7 F Pulse Rate 76 Respiratory Rate 22 Blood Pressure 144/90 H Pulse Oximetry 95 95 95 Oxygen Delivery Method Room Air Room Air Oxygen Flow Rate 0 0 0 08/21/22 15:29 Temperature 97.9 F Pulse Rate 90 Respiratory Rate 18 Blood Pressure 152/80 H Pulse Oximetry 93 Oxygen Delivery Method Oxygen Flow Rate 0 Oxygen Delivery Method Room Air Oxygen Flow Rate 0 Narrative Exam Narrative: GEN: Alert and oriented x 3, NAD HEENT:NC, Face symmetric CHEST: Respiratory excursions symmetric, CTAB CV: irregularly irregular, no M/R/G ABD: Soft, NT/ND, BT present in all 4 quadrants, laparoscopy sites have dressings in place and are c/d/i EXTR: warm, well perfused, no C/C/E SKIN: warm and dry, no rash NEURO: Alert and oriented x 3, nonfocal Objective Labs 08/21/22 02:40 08/21/22 02:40 Labs: Laboratory Results - last 24 hr 08/20/22 08/20/22 08/20/22 21:13 21:13 21:13 WBC RBC Hgb Hct MCV MCH MCHC RDW Plt Count Neut % (Auto) Lymph % (Auto) Marshall % (Auto) Eos % (Auto) Baso % (Auto) Neut # (Auto) Lymph # (Auto) Marshall # (Auto) Eos # (Auto) Baso # (Auto) PT INR APTT 26 Sodium 139 Potassium 3.9 Chloride 105 Carbon Dioxide 26 BUN 9 Creatinine 0.82 Estimated GFR > 60 BUN/Creatinine Ratio 11.0 Glucose 134 H Calcium 8.3 L Magnesium 1.8 Total Bilirubin 0.6 AST 98 H ALT 66 H Alkaline Phosphatase 66 Troponin I NT-Pro-B Natriuret Pep 742 H Total Protein 7.4 Albumin 4.1 Globulin 3.3 Albumin/Globulin Ratio 1.2 Triglycerides Cholesterol LDL Cholesterol, Calc HDL Cholesterol TSH Free T4 08/20/22 08/20/22 08/20/22 21:13 21:13 21:13 WBC RBC Hgb Hct MCV MCH MCHC RDW Plt Count Neut % (Auto) Lymph % (Auto) Marshall % (Auto) Eos % (Auto) Baso % (Auto) Neut # (Auto) Lymph # (Auto) Marshall # (Auto) Eos # (Auto) Baso # (Auto) PT INR APTT Sodium Potassium Chloride Carbon Dioxide BUN Creatinine Estimated GFR BUN/Creatinine Ratio Glucose Calcium Magnesium Total Bilirubin AST ALT Alkaline Phosphatase Troponin I < 0.012 NT-Pro-B Natriuret Pep Total Protein Albumin Globulin Albumin/Globulin Ratio Triglycerides 133 Cholesterol 182 LDL Cholesterol, Calc 102 H HDL Cholesterol 53 TSH 2.58 Free T4 1.21 08/20/22 08/21/22 08/21/22 21:13 02:40 02:40 WBC 13.7 H RBC 4.57 Hgb 14.0 Hct 40.7 L MCV 89.0 MCH 30.6 MCHC 34.3 RDW 14.0 Plt Count 190 Neut % (Auto) 94.2 H Lymph % (Auto) 3.8 L Marshall % (Auto) 1.7 L Eos % (Auto) 0.1 L Baso % (Auto) 0.2 Neut # (Auto) 93651 H Lymph # (Auto) 500 L Marshall # (Auto) 200 Eos # (Auto) 0 Baso # (Auto) 0 PT 13.0 H INR 1.1 APTT Sodium Potassium Chloride Carbon Dioxide BUN Creatinine Estimated GFR BUN/Creatinine Ratio Glucose Calcium Magnesium Total Bilirubin AST ALT Alkaline Phosphatase Troponin I < 0.012 NT-Pro-B Natriuret Pep Total Protein Albumin Globulin Albumin/Globulin Ratio Triglycerides Cholesterol LDL Cholesterol, Calc HDL Cholesterol TSH Free T4 08/21/22 08/21/22 08/21/22 02:40 02:40 08:40 WBC 9.5 RBC 4.35 L Hgb 13.5 Hct 38.7 L MCV 88.8 MCH 31.0 MCHC 34.9 RDW 14.0 Plt Count 190 Neut % (Auto) 88.4 H Lymph % (Auto) 5.9 L Marshall % (Auto) 2.6 L Eos % (Auto) 0.3 L Baso % (Auto) 2.8 H Neut # (Auto) 8400 H Lymph # (Auto) 600 L Marshall # (Auto) 200 Eos # (Auto) 0 Baso # (Auto) 300 H PT INR APTT Sodium 137 Potassium 4.3 Chloride 106 Carbon Dioxide 26 BUN 9 Creatinine 0.83 Estimated GFR > 60 BUN/Creatinine Ratio 10.8 Glucose 134 H Calcium 8.4 Magnesium 1.7 Total Bilirubin 0.8 AST 93 H ALT 70 H Alkaline Phosphatase 61 Troponin I < 0.012 NT-Pro-B Natriuret Pep Total Protein 7.0 Albumin 3.9 Globulin 3.1 Albumin/Globulin Ratio 1.3 Triglycerides Cholesterol LDL Cholesterol, Calc HDL Cholesterol TSH Free T4 PFSH Medical History (Updated 08/21/22 @ 12:04 by Raymond Fall MD) CVA (cerebral vascular accident) Epididymitis Gout Hyperlipidemia Hypertension Hypothyroidism (acquired) Raynaud's disease Well adult on routine health check Surgical History ([facility] 08/20[facility]22 @ 21:06 [facility] H/O hernia repair History of vasectomy Hx laparoscopic cholecystectomy Family History (Updated 08/20/22 @ 21:07 [facility] Father Hypertension Congestive heart failure Brother Hypertension Pacemaker Social History marital status: household members: spouse Smoking Status: Never smoker second hand exposure: No alcohol intake: current substance use type: does not use Assessment & Plan Assessment & Plan narrative: 1. Atrial fibrillation, new onset unclear how long he has been in AFib, as he does not have significant heart awareness. He remains rate controlled without medications. No further bradycardia. I suspect the bradycardia was secondary to anesthesia during surgery. His CHADS2 Vasc score is 3, equivalent with a 3.2% stroke risk. TSH was within normal limits. Echocardiogram is pending. I had a long discussion with him about risks and benefits of anticoagulation. He has a sister who is a nurse and wanted to discuss it with her 1st. He also has a brother who has been on Eliquis in the past but had difficulty tolerating it. After additional conversations throughout the day, the patient stated he would like to proceed with Eliquis anticoagulation. He is comfortable taking his pulse and is aware that if he has sustained tachycardia he is to contact his physician or come to the emergency department. I have also recommended that he follow-up with Cardiology on an outpatient basis in the near future. He agrees. 2. Hypokalemia Resolved with repletion. 3. Hypertension The moderately elevated while here, which may be secondary to pain from surgery. Remains on felodipine. May need additional treatment on an outpatient basis. His does note he did not tolerate propranolol, but I am uncertain what that was prescribed to treat. 4. Hypothyroidism Well controlled. Continue outpatient thyroid dosing 5. Postoperative day #1 from laparoscopic cholecystectomy for acute cholecystitis doing well overall. Postoperative care per the General Surgical Service. 6. hyperlipidemia Continue rosuvastatin 7. Remote stroke in 2000 he reports there was no known etiology for his stroke. He recovered well without significant deficits. It is possible he had paroxysmal AFib then, but obviously that can not be determined. Code status full prophylaxis will start Eliquis. This was cleared by General surgery. Disposition he will be discharging home later today per Dr. Fall.
[2022-08-23 03:04] LABS: Labcorp Hemoglobin (Hb) A1c 5.3 % (4.8-5.6)
== END 2022-08-21 17:16 | disposition home or self-care (01) | DRG 988 ==
LOC: ED 08:18 → AC 08:25
PROVIDERS: Emergency Medicine; Family Medicine; Nurse Practitioner Family; Admitting Provider Surgery; Emergency Provider Emergency Medicine; PCP Family Medicine; Referring Provider Emergency Medicine; Visit Provider Surgery
PROC: 0FT44ZZ Resection of Gallbladder, Percutaneous Endoscopic Approach (ICD-10-PCS; CPT 47562; principal; 2022-08-20 16:15)
DX: I48.91 Unspecified atrial fibrillation (principal); K81.0 Acute cholecystitis; K81.1 Chronic cholecystitis; R00.1 Bradycardia, unspecified; E87.6 Hypokalemia; E03.9 Hypothyroidism, unspecified; I10 Essential (primary) hypertension; E78.5 Hyperlipidemia, unspecified; Z86.73 Personal history of transient ischemic attack (TIA), and cerebral infarction without residual deficits; Z20.822 Contact with and (suspected) exposure to COVID-19
CPT/HCPCS: 36415; 47562; 80053; 80061; 83036; 83690; 83735; 83880; 84439; 84443; 84484; 85025; 85610; 85730; 87040; 87635; 93005; 93010; 93306; 96374; 96375; 99222; 99284; C9803; G0378; J0690; J1100; J1170; J1885; J2405; J2704; J3010; J3490

== ENCOUNTER 2022-10-01 08:15 | Emergency (ER) | payer OTHER, SELFPAY ==
[2022-08-20 08:37] VITALS: BMI 28.5
[2022-10-01 08:18] VITALS: BP 148/80; PULSE 64; RESP 16; TEMP 36.8; O2SAT 97; BMI 28.8
--- NOTE | 2022-10-01 08:24 | DI.US.S_ITS ---
PROCEDURE: US SCROTUM INDICATIONS: TESTICLE PAIN, SWELLING TECHNIQUE: Real-time scanning was performed of the scrotum and testicles, with image documentation. Color and pulse Doppler interrogation was performed of both testicles. COMPARISON: None. FINDINGS: Right: Testicle is normal in size at 3.5 x 2.2 x 2.9 cm, and homogenous in echotexture. Epididymis is normal in overall size and morphology. Hydrocele. No varicocele. Overlying scrotal skin is normal in thickness. Left: Testicle is normal in size at 3.2 x 2.2 x 2.9 cm, and homogeneous in echotexture. Epididymis is normal in overall size and morphology. Hydrocele. No varicocele. Incidental note made of echogenic calcification in the left hemiscrotum measuring 0.5 x 0.3 x 0.4 cm. Overlying scrotal skin is normal in thickness. Doppler: Color and pulse Doppler demonstrate normal and symmetric arterial flow in both testicles. IMPRESSION: 1. No evidence of testicular torsion or testicular mass. 2. No orchitis or epididymitis. 3. Note made of bilateral hydroceles. Dictated by: Gabe Alfaro M.D. on 10/01/2022 at 8:49 Approved by: Gabe Alfaro M.D. on 10/01/2022 at 8:52
--- NOTE | 2022-10-01 08:29 | ED_ITS ---
HPI - Male Genitourinary General Chief complaint: Urogenital-Male Stated complaint: testicle issue Time Seen by Provider: 10/01/22 08:17 History of Present Illness HPI Narrative: 62-year-old male nonsmoker with history of atrial fibrillation on Eliquis presents with his in the chief complaint of pain and swelling in his testicle after lifting heavy objects over the past few days. He states that it is persistently tender and seemed to be worse when he moves and improves with rest. He denies fever chills. Denies nausea, vomiting, constipation or diarrhea. He denies any history of the same. Related Data Home Medications Medication Instructions Recorded Confirmed indomethacin 25 mg capsule 25 mg PO TID PRN diarrhea 05/07/22 09/09/22 loratadine 10 mg tablet 10 mg PO DAILY PRN diarrhea 05/07/22 09/09/22 Previous Rx's Medication Instructions Recorded felodipine 10 mg tablet,extended 10 mg PO DAILY #90 tabs 06/18/22 release 24 hr levothyroxine 100 mcg tablet 100 mcg PO DAILY #90 tabs 06/18/22 (Synthroid) rosuvastatin 10 mg tablet 10 mg PO DAILY #90 tabs 06/18/22 acetaminophen 325 mg capsule 650 mg PO QID PRN pain #60 caps 08/20/22 (Tylenol) acetaminophen 325 mg tablet 650 mg PO Q6H PRN fever or pain 08/21/22 (Tylenol) #30 tabs apixaban 5 mg tablet (Eliquis) 5 mg PO BID #60 tabs 08/21/22 Allergies Allergy/AdvReac Type Severity Reaction Status Date / Time No Known Drug Allergies Allergy Verified 09/09/22 14:41 Review of Systems Review of Systems Narrative: GENERAL: Denies chills, fatigue, malaise, fever, sweats. HEENT: Denies sinus pain, ear pain, sore throat, difficulty swallowing, dizziness. RESPIRATORY: Denies dyspnea, cough, wheezing, hemoptysis, sputum. CARDIOVASCULAR: Denies chest pain, palpitations, orthopnea, edema, GASTROINTESTINAL: Denies nausea, vomiting, abdominal pain, diarrhea, consti pation, melena. : See HPI MUSCULOSKELETAL: denies weakness, joint pain, or bony pain SKIN: Denies rash, skin lesions, or other NEUROLOGIC: Denies weakness, headache, numbness, change in speech, confusion, seizures, incoordination. PSYCHIATRIC: No concerning psychosocial issues. 12 point review of systems is negative except for those stated above Patient History Medical History CVA (cerebral vascular accident) Epididymitis Gout Hyperlipidemia Hypertension Hypothyroidism (acquired) Raynaud's disease Right upper extremity numbness Well adult on routine health check Surgical History H/O hernia repair History of vasectomy Hx laparoscopic cholecystectomy Family History Father Hypertension Congestive heart failure Brother Hypertension Pacemaker Social History marital status: household members: spouse Smoking Status: Never smoker second hand exposure: No alcohol intake: current substance use type: does not use Smoking Status: Never smoker alcohol intake frequency: 0-2 drinks per day Substance Use Type: does not use Exam Narrative Exam Narrative: GEN: AOx3 and in mild distress EYES: Pupils are equal, round, and reactive to light and accommodation. Extraocc ular muscles are intact bilaterally. There is no subconjunctival hemorrhage or exudate. CHEST: Lungs are clear to auscultation bilaterally and free of wheezes, rales, or rhonchi. Heart rate is regular rhythm, there are no murmurs, clicks, rubs, or gallops. There is no chest wall tenderness. ABD: Abdomen is soft and nontender. There is no guarding or rebound. Bowel sounds are normal in all 4 quadrants. There is no mass or organomegaly. : Patient examined while standing, R testicle is elevated, and further elevation worsens pain. No evidence of hernia. Minimal erythema, no obvious swelling, induration or fluctuance. EXT: Full painless ROM of all extremities with no loss of sensation or strength. SKIN: Warm, pink, and dry. No erythema or rash Initial Vital Signs Initial Vital Signs: Vital Signs Temperature 98.2 F 10/01/22 08:18 Pulse Rate 64 10/01/22 08:18 Respiratory Rate 16 10/01/22 08:18 Blood Pressure 148/80 H 10/01/22 08:18 Pulse Oximetry 97 10/01/22 08:18 Oxygen Delivery Method Room Air 10/01/22 08:18 Course Orders Ordered: ED Orders 10/01/22 08:24 US scrotum Stat Vital Signs Vital signs: Vital Signs - 8 hr 10/01/22 08:18 Temperature 98.2 F Pulse Rate 64 Respiratory Rate 16 Blood Pressure 148/80 H Pulse Oximetry 97 Oxygen Delivery Method Room Air MDM - Male Genitourinary Lab Data Labs: Urine Dip Bedside Urine Glucose Negative Bedside Urine Bilirubin - Negative Bedside Urine Ketone - Negative Urine Specific Witter 1.025 Bedside Urine Occult Blood - Negative Bedside Urine pH 5.5 Bedside Urine Protein - Negative Bedside Urine Urobilinogen - Negative Bedside Urine Nitrite - Negative Bedside Urine Leukocytes - Negative Esterase MDM Narrative Medical decision making narrative: [62] year old patient presents with right testicular pain over the past few days Multiple etiologies for patient's symptoms considered including, but not limited to: [Testicular torsion versus hernia versus epididymitis versus varicocele versus hydrocele versus referred pain such as kidney stone versus other] Prior Charts reviewed in our EMR Primary Historian: patient Labs reviewed and interpreted by myself: Urine without evidence of bleeding or infection Imaging reviewed: Testicular ultrasound demonstrates no evidence of torsion or mass. No orchitis or epididymitis. Bilateral hydroceles Pain in R testicle after moving yesterday. Clear urine without evidence of infection or blood. Kidney stone thought unlikely given reproducible pain and testicle, no flank pain. Torsion considered, patient is having pain during ultrasound and appropriate flow is noted. Hydroceles are noted, no varicocele, no evidence of epididymitis. Findings and discharge diagnosis discussed with patient/family followed by verbalization of understanding Return precautions discussed with patient/family whom verbalize understanding of diagnosis and plan Discharge Plan Departure Patient Disposition: Home Clinical Impression: Pain in right testicle Instructions: Testicular Torsion Activity Restrictions/Additional Instructions: *You have been diagnosed with [right testicle pain. As we discussed your history and physical exam are reassuring. The ultrasound shows no evidence of testicular torsion, epididymitis, infected testicle, hernia or other obvious abnormality] *What to do: *Please continue to take your regular medications as directed. *Please follow up with your primary care provider in 2-3 days, call for an appointment. Let them know you were seen in the Emergency Department and that we ask that you be seen in follow up. We will electronically transmit a record of today's note if your PCP is in our system * as we discussed I have included contact information for Urology. Please call the office, let them know you were seen in the emergency department and we would like you to be seen in follow-up. I will electronically transmitted a copy of today's note *Return to Emergency Department if you should have any new, worsening or concerning symptoms, such as [fever greater than 101 F, shaking chills, worsening pain, persistent vomiting or other bothersome symptoms] Prescriptions: No Action rosuvastatin 10 mg tablet 10 mg PO DAILY Qty: 90 3RF levothyroxine [Synthroid] 100 mcg tablet 100 mcg PO DAILY Qty: 90 3RF felodipine 10 mg tablet extended release 24 hr 10 mg PO DAILY Qty: 90 3RF loratadine 10 mg tablet 10 mg PO DAILY PRN (Reason: diarrhea) Rx Instructions: as needed indomethacin 25 mg capsule 25 mg PO TID PRN (Reason: diarrhea) Rx Instructions: as needed acetaminophen [Tylenol] 325 mg capsule 650 mg PO QID PRN (Reason: pain) Qty: 60 0RF Eliquis 5 mg tablet 5 mg PO BID Qty: 60 0RF acetaminophen [Tylenol] 325 mg tablet 650 mg PO Q6H PRN (Reason: fever or pain) Qty: 30 0RF Referrals: Wei Corley MD [Physician] - Imer Huerta DO [Primary Care Provider] - Stand Alone Forms: Patient Portal/API
[2022-10-01 09:31] VITALS: BP 137/80; PULSE 61; RESP 12; O2SAT 96
== END 2022-10-01 09:36 | disposition home or self-care (01) ==
PROVIDERS: Emergency Provider Emergency Medicine; PCP Family Medicine
DX: N50.811 Right testicular pain (principal)
CPT/HCPCS: 76870; 81003; 93975; 99282; 99283

== ENCOUNTER → 2022-10-07 13:03 | Outpatient (CLI) | payer OTHER, SELFPAY ==
[2022-08-20 08:37] VITALS: BMI 28.5
== END ==
PROVIDERS: Family Provider Family Medicine; PCP Family Medicine; Referring Provider Family Medicine; Visit Provider Family Medicine
DX: R20.0 Anesthesia of skin (principal)
CPT/HCPCS: 95886; 95910

== ENCOUNTER → 2023-08-26 08:16 | Outpatient (CLI) | payer OTHER, SELFPAY ==
[2022-08-20 08:37] VITALS: BMI 28.5
[2023-08-26 09:14] LABS: Alanine Aminotransferase 41 IU/L (<50); Albumin 4.1 g/dL (3.5-5.0); Albumin Globulin Ratio 1.5 (1.0-2.8); Alkaline Phosphatase 79 U/L (38-126); Aspartate Aminotransferase 38 IU/L (17-59); BUN Creatinine Ratio 13.2 (6-22); Bilirubin Total 0.8 mg/dL (0.2-1.3); Blood Urea Nitrogen 12 mg/dL (9-20); Carbon Dioxide 34 mmol/L (22-32); Chloride 104 mmol/L (98-107); Cholesterol 155 mg/dL (140-199); Estimated Glomerular Filt Rate > 60 mL/min (>60); Globulin 2.8 g/dL (1.7-4.1); Glucose 95 mg/dL (80-110); HDL Cholesterol 58 mg/dL (40-60); HEMOLYSIS < 15 (0-50); LDL Cholesterol Calculated 79 mg/dL (<100); Potassium 4.1 mmol/L (3.4-5.1); Sodium 139 mmol/L (137-145); Total Protein 6.9 g/dL (6.3-8.2); Triglycerides 90 mg/dL (35-150)
== END ==
PROVIDERS: Family Provider Family Medicine; PCP Family Medicine; Referring Provider Family Medicine; Visit Provider Family Medicine
DX: E78.5 Hyperlipidemia, unspecified (principal); I10 Essential (primary) hypertension
CPT/HCPCS: 36415; 80053; 80061